=== PATIENT | female | born 1955 | race Caucasian/White ===

== ENCOUNTER 2019-02-13 09:00 | Outpatient (RCR) | payer MEDICARE, BC, SELFPAY | END 2019-02-13 09:05 | disposition home or self-care (01) | LOC: PT 09:00 | PROVIDERS: Visit Provider Orthopaedic Surgery Adult Reconstructive Orthopaedic Surgery | DX: Z96.641 Presence of right artificial hip joint (principal); M25.551 Pain in right hip | CPT/HCPCS: 97110; 97140; 97163 ==

== ENCOUNTER → 2020-05-21 09:31 | Outpatient (CLI) | payer MEDICARE, BC, SELFPAY ==
--- NOTE | 2020-05-21 09:36 | US_ITS ---
PROCEDURE: US EXTREMITY RT LIMITED CLINICAL INDICATION: INGUINAL MASS COMPARISON: No exams were available for comparison FINDINGS: Ultrasound is performed of the right inguinal region in the supine and upright position. No hernia is identified. No soft tissue mass apparent. There are few small lymph nodes. No abnormal fluid collection. IMPRESSION: Unremarkable ultrasound of the right inguinal region. There are few scattered small lymph nodes which are [address] of the inguinal area may provide further evaluation if clinically desired. Dictated by: Jimmy Garcia MD 05/22/2020 07:23 Jimmy Garcia MD in [place] 05/22/2020 07:23
--- NOTE | 2020-05-21 09:36 | MM_ITS ---
PROCEDURE: MM DIG SCREENING MAMM BI W/CAD Digital Breast Tomosynthesis Included CLINICAL INDICATION: SCREENING There is no personal or family history of breast cancer. COMPARISON: MG DMSB DIG MAMM-SCREEN JENNIFER from 08/20/2014 MG DMSB DIG MAMM-SCREEN JENNIFER from 01/29/2016 MG DMSB DIG MAMM-SCREEN JENNIFER W/CAD from 02/02/2017 TECHNIQUE: Standard CC and MLO images and 3D Tomosynthesis was obtained. R2 CAD reviewed. FINDINGS: Scattered fibroglandular densities are seen throughout both breast and the findings are bilateral and symmetrical. There is faint arterial calcification in each breast. There are few benign-appearing microcalcifications in each breast. There is no suspicious lesion and no suspicious microcalcifications. IMPRESSION: Fibrofatty parenchyma with no suspicious lesions seen BI-RAD Category: 2 Benign Finding(s) FOLLOW-UP: 1YR 1 Year Follow-up (A letter has been sent to the patient regarding results of the study.) Dictated by: Dr. Mukund Whitmore MD 05/25/2020 11:23 Dr. Mukund Whitmore MD in [place] 05/25/2020 11:23
--- NOTE | 2020-05-21 09:37 | XR_ITS ---
PROCEDURE: XR DEXA AXIAL SKELETON CLINICAL HISTORY: OSTEOPOROSIS Six COMPARISON: No exams were available for comparison FINDINGS: The left hip BMD is 0.821 with a T-score of -1.0. The lumbar spine BMD is 1.066 with a T-score of 0.2. Left wrist 33 percent is 0.663 grams/centimeters sq with a T-score of -0 point. IMPRESSION: This patient is considered normal according to the World Health Organization criteria. Fracture risk is low. Based on these results a follow-up exam is recommended in 2 year. Dictated by: Jimmy Garcia MD 05/22/2020 18:27 Jimmy Garcia MD in [place] 05/22/2020 18:27
== END ==
PROVIDERS: PCP Nurse Practitioner Family; Visit Provider Nurse Practitioner Family
DX: R19.09 Other intra-abdominal and pelvic swelling, mass and lump (principal); Z12.31 Encounter for screening mammogram for malignant neoplasm of breast; Z13.820 Encounter for screening for osteoporosis; Z78.0 Asymptomatic menopausal state
CPT/HCPCS: 76882; 77063; 77067; 77080

== ENCOUNTER → 2021-07-06 10:37 | Outpatient (CLI) | payer MEDICARE, BC, SELFPAY ==
--- NOTE | 2021-07-06 10:40 | MM_ITS ---
PROCEDURE INFORMATION: Exam: MG Bilateral Screening 3D Mammography Exam date and time: 07/06/2021 10:40 AM Age: 65 years old Clinical indication: Encounter for screening mammogram for malignant neoplasm of breast TECHNIQUE: Imaging protocol: Bilateral Screening tomosynthesis and 2D mammography including computer-aided detection (CAD) when performed. COMPARISON: No relevant prior studies available. FINDINGS: MAMMOGRAPHY: Breast composition: The breast tissue is composed of scattered areas of fibroglandular density. Mass: None. Architectural distortion: None. Calcifications: No suspicious calcifications. Asymmetric density: None. Skin thickening: None. Axillary adenopathy: None. IMPRESSION: No mammographic evidence of malignancy. Annual screening is recommended unless otherwise clinically indicated. ASSESSMENT: BI-RADS Category 1: Negative
== END ==
PROVIDERS: PCP Nurse Practitioner Family; Visit Provider Nurse Practitioner Family
DX: Z12.31 Encounter for screening mammogram for malignant neoplasm of breast (principal)
CPT/HCPCS: 77063; 77067

== ENCOUNTER → 2022-01-28 08:49 | Outpatient (CLI) | payer MEDICARE, BC, SELFPAY ==
[2022-01-28 09:37] LABS: Alanine Aminotransferase 22 U/L (12-78); Albumin Level 4.6 g/dl (3.5-5.0); Alkaline Phosphatase 113 U/L (38-126); Aspartate Amino Transferase 34 U/L (14-36); Bilirubin,Direct 0.2 mg/dl (0.0-0.4); Bilirubin,Indirect 1.3 mg/dL (0.0-0.9); Bilirubin,Total 1.5 mg/dl (0.2-1.3); Bilirubin,Unconjugated 1.3 mg/dL (0.0-1.1)
== END ==
PROVIDERS: PCP Family Medicine; Visit Provider Family Medicine
DX: R17 Unspecified jaundice (principal)
CPT/HCPCS: 36415; 80076

== ENCOUNTER → 2022-11-03 16:51 | Outpatient (CLI) | payer MEDICARE, SELFPAY ==
--- NOTE | 2022-11-03 16:54 | MM_ITS ---
PROCEDURE INFORMATION: Exam: MG Bilateral Screening 3D Mammography Exam date and time: 11/03/2022 4:44 PM Age: 67 years old Clinical indication: Screening examination TECHNIQUE: Imaging protocol: Bilateral Screening tomosynthesis and 2D mammography including computer-aided detection (CAD) when performed. COMPARISON: 1. MG MM DIG SCREENING MAMM BI W/CAD 07/06/2021 10:47 AM 2. MG MM DIG SCREENING MAMM BI W/CAD 05/21/2020 10:15 AM FINDINGS: MAMMOGRAPHY: Breast composition: There are scattered areas of fibroglandular density. Mass: None. Architectural distortion: None. Calcifications: No suspicious calcifications. Asymmetric density: None. Skin thickening: None. Axillary adenopathy: None. IMPRESSION: No mammographic evidence of malignancy. Annual screening is recommended unless otherwise clinically indicated. ASSESSMENT: BI-RADS Category 1: Negative
== END ==
PROVIDERS: PCP Family Medicine; Visit Provider Nurse Practitioner
DX: Z12.31 Encounter for screening mammogram for malignant neoplasm of breast (principal)
CPT/HCPCS: 77063; 77067

== ENCOUNTER 2023-08-04 09:41 | Outpatient (CLI) | payer MEDICARE, SELFPAY ==
--- NOTE | 2023-08-04 10:10 | US_ITS ---
FINAL REPORT CLINICAL HISTORY: ELEVATED BILIRUBIN ABOVE REFERENCE RANGE,JAUNDICE COMPARISON: None FINDINGS: Sonographic images of the right upper quadrant were obtained. The pancreas is partially obscured.The liver has an unremarkable appearance.The gallbladder appears normal without evidence of gallstones. A small amount of sludge is noted in the gallbladder. The common duct measures 6 mm. Multiple echogenic foci with shadowing are noted in the kidney consistent with nonobstructing calcified stones. There is mild calyceal prominence in the right kidney but no stacie hydronephrosis is present. IMPRESSION: Small amount of sludge present in the gallbladder. Multiple nonobstructing right renal stones with mild calyceal prominence but no stacie hydronephrosis. Reviewed, Interpreted and Dictated by Caesar Tuttle MD Transcribed by Amy Rojas Authenticated and [facility]
== END 2023-08-04 23:59 ==
LOC: RAD 09:42
PROVIDERS: PCP Nurse Practitioner; Visit Provider Nurse Practitioner
DX: R17 Unspecified jaundice (principal)
CPT/HCPCS: 76705

== ENCOUNTER 2023-12-26 07:57 | Outpatient (CLI) | payer MEDICARE, SELFPAY ==
[2023-12-26 08:11] LABS: Basophils # 0.1 K/mm3 (0-0.2); Basophils % 1.1 % (0.1-2.0); Eosinophils # 0.4 K/mm3 (0.0-0.4); Eosinophils % 7.2 % (0.1-12.0); Hematocrit 40.7 % (37.0-47.0); Hemoglobin 13.1 g/dL (12.2-16.2); Lymphocytes # 2.1 K/mm3 (0.7-4.5); Lymphocytes % 41.7 % (10-50); Mean Corpuscular HGB Conc 32.3 g/dL (31.8-35.4); Mean Corpuscular Hemoglobin 30.8 pg (27.0-31.2); Mean Corpuscular Volume 95.4 fl (81-99); Mean Platelet Volume 7.6 fl (7.4-10.4); Monocytes # 0.4 K/mm3 (0.1-1.0); Monocytes % 8.6 % (1.7-9.3); Neutrophils # 2.1 K/mm3 (1.8-7.8); Neutrophils % 41.5 % (37.0-80.0); Platelet Count 197 K/mm3 (142-424); Red Blood Count 4.26 M/mm3 (4.20-5.40); Red Cell Distribution Width 13.7 % (11.5-17.5); White Blood Count 4.9 K/mm3 (4.8-10.8)
[2023-12-26 11:29] LABS: Chloride 108 mmol/L (98-107); Sodium 141 mmol/L (136-145)
[2023-12-26 11:32] LABS: Alanine Aminotransferase 22 U/L (12-78); Alkaline Phosphatase 87 U/L (38-126); Aspartate Amino Transferase 31 U/L (14-36); Bilirubin,Total 0.9 mg/dl (0.2-1.3); Blood Urea Nitrogen 21 mg/dl (7-17); Calcium 9.3 mg/dl (8.4-10.2); Carbon Dioxide 29 mmol/L (22.0-30.0); Estimated Glomerular Filt Rate 100 ml/min (>60); GFR (African American) 121 ML/MIN (>60); Glucose 92 mg/dl (74-100)
[2023-12-26 11:53] LABS: Albumin Level 4.6 g/dl (3.5-5.0); Albumin/Globulin Ratio 1.9 (1.1-1.8); Globulin 2.4 g/dL (1.3-3.2)
== END 2023-12-26 23:59 | disposition home or self-care (01) ==
LOC: LAB 07:59
PROVIDERS: PCP Nurse Practitioner; Visit Provider Internal Medicine Rheumatology
DX: M54.9 Dorsalgia, unspecified (principal); M19.90 Unspecified osteoarthritis, unspecified site; N28.9 Disorder of kidney and ureter, unspecified; R89.9 Unspecified abnormal finding in specimens from other organs, systems and tissues
CPT/HCPCS: 36415; 80053; 85025

== ENCOUNTER 2024-01-11 13:20 | Outpatient (CLI) | payer MEDICARE, SELFPAY ==
--- NOTE | 2024-01-11 13:23 | MM_ITS ---
PROCEDURE INFORMATION: Exam: MG Bilateral Screening 3D Mammography Exam date and time: 01/11/2024 1:08 PM Age: 68 years old Clinical indication: Screening examination TECHNIQUE: Imaging protocol: Bilateral Screening tomosynthesis and 2D mammography including computer-aided detection (CAD) when performed. COMPARISON: 1. MG MM DIG SCREENING MAMM BI W/CAD 11/03/2022 4:44 PM 2. MG MM DIG SCREENING MAMM BI W/CAD 07/06/2021 10:47 AM FINDINGS: MAMMOGRAPHY: Breast composition: There are scattered areas of fibroglandular density. Mass: None. Architectural distortion: None. Calcifications: No suspicious calcifications. Asymmetric density: None. Skin thickening: None. Axillary adenopathy: None. IMPRESSION: No mammographic evidence of malignancy. Annual screening is recommended unless otherwise clinically indicated. ASSESSMENT: BI-RADS Category 1: Negative
== END 2024-01-11 23:59 | disposition home or self-care (01) ==
LOC: RAD 13:21
PROVIDERS: PCP Nurse Practitioner; Visit Provider Nurse Practitioner
DX: Z12.31 Encounter for screening mammogram for malignant neoplasm of breast (principal)
CPT/HCPCS: 77063; 77067

== ENCOUNTER 2024-12-22 01:30 | Emergency (ER) | payer MEDICARE, SELFPAY ==
--- OUTSIDE RECORDS SUMMARY | 2024-10-31 09:45 | XMS_ITS | Encounter Summary ---
Author Organization [facility] Address [address] [place] [address] Care Team Providers Care Ceramic Research Engineer Name Role Phone Brenda Mejia Lashaun Primary Care Provider [phone] Reason for Referral * Diagnostic Imaging (Routine) - Authorized Specialty Diagnoses / Procedures Referred By Contac t Referred To Contact Radiology Diagnoses Postmenopause Procedures DEXA Bone Density Axial Anshu Maloney APRN [address] [facility] [address] [place] [address] Phone: tel: fax: [facility] RHEUMATOLOGY DEXA [address] [address] Phone: tel: fax: Referral ID Status Reason Start Date Expiration Date V isits Requested Visits Authorized [id number] Authorized 10/31/2024 01/30/2026 1 1 Reason for Visit * Reason Comments Primary osteoarthritis Encounter Details Date Type Department Care Team (Latest Contact Info) Description 10/31/2024 9:45 AM EDT Office Visit [facility] RHEUMATOLOGY [address] [place] [address] Anshu Maloney APRN [address] [place], [place] [address] Primary osteoarthritis involving multiple joints (Primary Dx); Renal insufficiency; Pain management; Acute idiopathic gout involving toe of right foot; Postmenopause; Pain in both upper arms; Arthralgia, unspecified joint Social History Tobacco Use Types Packs/Day Years Used Date Smoking Tobacco: Never Passive Smoke Exposure: Past Smokeless Tobacco: Never Tobacco Cessation:Counseling Given: Not Answered Alcohol Use Standard Drinks/Week Comments Never 0 (1 standard drink = 0.6 oz pur e alcohol) PHQ-2 Answer Date Recorded Retired PHQ-9: Brief Depression Severity Measure Score 0 01/22/2022 Comments Unknown Sex and Gender Information Value Date Recorded Sex Assigned at Not on file Legal Sex Female 10:36 AM EDT Gender Identity Not on file Sexual Orientation Not on file documented as of this encounter Last Filed Vital Signs Vital Sign Reading Time Taken Comments Blood Pressure 130/78 10/31/2024 9:33 AM EDT Pulse 64 10/31/2024 9:33 AM EDT Temperature 36.3 C (97.4 F) 10/31/2024 9:33 AM EDT Respiratory Rate - - Oxygen Saturation - - Inhaled Oxygen Concentration - - Weight 76.2 kg (168 lb) 10/31/2024 9:33 AM EDT Height 162.6 cm (5' 4 ) 10/31/2024 9:33 AM EDT Body Mass Index 28.84 10/31/2024 9:33 AM EDT documented in this encounter Progress Notes * Anshu Maloney, МАРИЯ - 10/31/2024 9:45 AM EDTAssociated Problem(s): Primary osteoarthritis History of left TKR 06/22 and right TKR 09/19--Dr Rondon.; labs neg; X-ray c/w degenerative joint disease of the hands Shoulder film 05/31 - OA of AC joint , narrowing of the GH joint on R with spur, joint on L was not narrowed but spur present. She has pain in the hands currently - OA , First cmc joint on L. R 5th pip is bothersome. Hand films 12/29 - significant OA in DIPs, PIPs, and 1st CMCs. Worse since 2012. Unchanged. Plan: Continue sulindac and Gabapentin Continue Pepcid while on sulindac Can try topical creams such as CBD and Biofreeze. Comfort cool splints from [employer]. Compression gloves. Her shoulders are her biggest problem. Declines PT. She is thinking about seeing chiropractor. Currently taking gabapentin bid. She finds this very helpful. Tylenol Arthritis 2 twice daily - [employer] generic or BRAND. Orders: CBC & Differential; Future Comprehensive Metabolic Panel; Future ToxAssure Flex 22, Urine - Urine, Random Void; Future sulindac (CLINORIL) 200 MG tablet; Take 1 tablet by mouth 2 (Two) Times a Day. Daily with food gabapentin (NEURONTIN) 300 MG capsule; Take 1 capsule by mouth 3 (Three) Times a Day. * Anshu Maloney APRN - 10/31/2024 9:45 AM EDTAssociated Problem(s): Renal insufficiency Resolved on most recent labs Plan: Cbc,Cmp Q 6 months - 07/2024 Doing well currently. * Anshu Maloney APRN - 10/31/2024 9:45 AM EDTAssociated Problem(s): Pain management Gabapentin. Controlled substance agreement reviewed and signed 10/31/24 Plan: Continue Gabapentin. UDS 10/31/24 PDMP reviewed Discussed risks of gabapentin including dizziness sedation, weight gain, leg swelling, withdrawal. Discussed gabapentin is controlled medication and that she should keep it in a locked cabinet. Orders: ToxAssure Flex 22, Urine - Urine, Random Void; Future * Anshu Maloney APRN - 10/31/2024 9:45 AM EDT [facility] Rheumatology Office Follow Up Visit Office Follow Up Date: 10/31/2024 Patient Name: Kayleen Webb Date of : 1955 Referring Physician: No ref. provider found Chief Complaint Patient presents with Primary osteoarthritis History of Present Illness: Kayleen Webb is a 69 y.o. female who is here today for follow up onosteoarthritis. Today she reports feeling the same. She rates her pain 2/10, global 4/10 and has 20to 30 minutes of morning stiffness. She request refills of sulindac and gabapentin today. She is a former Dr. Victoria Barahona patient. Subjective Allergies Allergen Reactions Beef (Bovine) Protein Other (See Comments) Alphagal Lisinopril Other (See Comments) Lips swelling Other Provider Review Needed SERUM BASE NO.214: HORSE SERUM Pork-Derived Products Other (See Comments) Alphagal Current Outpatient Medications: albuterol sulfate HFA 108 (90 Base) MCG/ACT inhaler, , Disp: , Rfl: amLODIPine (NORVASC) 10 MG tablet, Take 1 tablet by mouth Daily., Disp: 90 tablet, Rfl: 1 atorvastatin (LIPITOR) 20 MG tablet, Take 1 tablet by mouth Daily., Disp: 90 tablet, Rfl: 1 benzonatate (TESSALON) 200 MG capsule, Take 1 capsule by mouth 3 times a day., Disp: , Rfl: calcium carbonate (OS-MARCIA) 1250 (500 Ca) MG tablet, Take by mouth., Disp: , Rfl: Cholecalciferol 25 MCG (1000 UT) tablet, Take 1 tablet by mouth Daily., Disp: , Rfl: colchicine 0.6 MG tablet, Take 1 tablet by mouth Daily. Prn gout attack, Disp: 30 tablet, Rfl: 2 EPINEPHrine (EPIPEN) 0.3 MG/0.3ML solution auto-injector injection, INJECT 1 PEN INTO THE MUSCLE OFTHE OUTER THIGH DIRECTED NEEDED AND CALL 911, Disp: , Rfl: famotidine (PEPCID) 20 MG tablet, , Disp: , Rfl: gabapentin (NEURONTIN) 300 MG capsule, Take 1 capsule by mouth 3 (Three) Times a Day., Disp: 270 capsule, Rfl: 1 levothyroxine (SYNTHROID, LEVOTHROID) 125 MCG tablet, Take 1 tablet by mouth Daily., Disp: 90 tablet, Rfl: 1 losartan-hydrochlorothiazide (HYZAAR) 50-12.5 MG per tablet, Take 1 tablet by mouth Daily., Disp: 90 tablet, Rfl: 1 magnesium oxide (MAG-OX) 400 MG tablet, Take 1 tablet by mouth Daily., Disp: , Rfl: sulindac (CLINORIL) 200 MG tablet, Take 1 tablet by mouth 2 (Two) Times a Day. 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 She was bit by lone star tick. Arthritis 08/2012 Had both knees and right hip replaced Asthma 10/1963 Took asthma shots when young. Have emergency inhaler. Not much trouble now Benign positional vertigo Bilateral hand numbness Fatigue History of blood clots IN UMBILICAL CORD Hypercalcemia Hyperlipidemia Hypertension 1999 Under control with meds Hypomagnesemia Hypothyroidism 2005 Under control with meds Insomnia Joint pain Low back pain Multiple food allergies BEEF,PORK,TILLMAN Shingles Tattoo Vitamin D deficiency Past Surgical History: Procedure Laterality Date COLONOSCOPY 2016 Nothing found COSMETIC SURGERY 1991 Abdominoplasty JOINT REPLACEMENT 06/2013. 09/2013. 12/2017 Both knees and right hip replaced TONSILLECTOMY 1964 Family History Problem Relation Age of Onset Arthritis Mother Diabetes Mother Heart disease Mother Hyperlipidemia Mother Cancer Father from pancreatic cancer 02/09/2015 Cancer Brother from bladder cancer 12/31/2015 Diabetes Brother Social History Socioeconomic History Marital status: Number of children: 3 Tobacco Use Smoking status: Never Passive exposure: Past Smokeless tobacco: Never Vaping Use Vaping status: Never Used Substance and Sexual Activity Alcohol use: Never Drug use: Never Sexual activity: Not Currently Partners: Male Review of Systems Constitutional: Positive for fatigue. Respiratory: Positive for cough, chest tightness, shortness of breath and wheezing. Musculoskeletal: Positive for arthralgias, back pain, gait problem, joint swelling, myalgias, neck pain and neck stiffness. Allergic/Immunologic: Positive for food allergies. Neurological: Positive for light-headedness. All other systems reviewed and are negative. I have reviewed and updated the patient's chief complaint, history of present illness, review of systems, past medical history, surgical history, family history, social history, medications and allergy list as appropriate. Objective Vital Signs: Vitals: 10/31/24 0933 BP: 130/78 BP Location: Left arm Patient Position: Sitting Cuff Size: Adult Pulse: 64 Temp: 97.4 ??F (36.3 ??C) Weight: 76.2 kg (168 lb) Height: 162.6 cm (64 ) PainSc: 2 PainLoc: Generalized Body mass index is 28.84 kg/m??. Physical Exam Vitals reviewed. Constitutional: Appearance: Normal appearance. HENT: Head: Normocephalic and atraumatic. Mouth/Throat: Mouth: Mucous membranes are moist. Eyes: Conjunctiva/sclera: Conjunctivae normal. Cardiovascular: Rate and Rhythm: Normal rate and regular rhythm. Pulses: Normal pulses. Heart sounds: Normal heart sounds. Pulmonary: Effort: Pulmonary effort is normal. Breath sounds: Normal breath sounds. Musculoskeletal: General: Normal range of motion. Cervical back: Normal range of motion and neck supple. Comments: Large heberden and aury bilaterally No synovitis/soft tissue swelling Tender shoulders with ROM Crepitus right knee Skin: General: Skin is warm and dry. Neurological: General: No focal deficit present. Mental Status: She is alert and oriented to person, place, and time. Mental status is at baseline. Psychiatric: Mood and Affect: Mood normal. Behavior: Behavior normal. Thought Content: Thought content normal. Judgment: Judgment normal. Results Review: Imaging Results (Last 24 Hours) No results found for the last 24 hours. Procedures Assessment / Plan Assessment & Plan Primary osteoarthritis involving multiple joints History of left TKR 06/22 and right TKR 09/19--Dr Rondon.; labs neg; X-ray c/w degenerative joint disease of the hands Shoulder film 05/31 - OA of AC joint , narrowing of the GH joint on R with spur, joint on L was not narrowed but spur present. She has pain in the hands currently - OA , First cmc joint on L. R 5th pip is bothersome. Hand films 12/29 - significant OA in DIPs, PIPs, and 1st CMCs. Worse since 2012. Unchanged. Plan: Continue sulindac and Gabapentin Continue Pepcid while on sulindac Can try topical creams such as CBD and Biofreeze. Comfort cool splints from [employer]. Compression gloves. Her shoulders are her biggest problem. Declines PT. She is thinking about seeing chiropractor. Currently taking gabapentin bid. She finds this very helpful. Tylenol Arthritis 2 twice daily - [employer] generic or BRAND. Orders: CBC & Differential; Future Comprehensive Metabolic Panel; Future ToxAssure Flex 22, Urine - Urine, Random Void; Future sulindac (CLINORIL) 200 MG tablet; Take 1 tablet by mouth 2 (Two) Times a Day. Daily with food gabapentin (NEURONTIN) 300 MG capsule; Take 1 capsule by mouth 3 (Three) Times a Day. Renal insufficiency Resolved on most recent labs Plan: Cbc,Cmp Q 6 months - 07/2024 Doing well currently. Pain management Gabapentin. Controlled substance agreement reviewed and signed 10/31/24 Plan: Continue Gabapentin. UDS 10/31/24 PDMP reviewed Discussed risks of gabapentin including dizziness sedation, weight gain, leg swelling, withdrawal. Discussed gabapentin is controlled medication and that she should keep it in a locked cabinet. Orders: ToxAssure Flex 22, Urine - Urine, Random Void; Future Acute idiopathic gout involving toe of right foot She has had one gout attack. No further gout flares Postmenopause Order dexa Orders: DEXA Bone Density Axial; Future Pain in both upper arms Orders: CBC & Differential; Future Arthralgia, unspecified joint Orders: ToxAssure Flex 22, Urine - Urine, Random Void; Future I attest that the documentation was copied from a previous note but is still current and accurate. Follow Up: Return in about 6 months (around 05/02/2025) for NORMA Maloney APRN. Anshu Maloney APRN [facility] Rheumatology documented in this encounter Plan of Treatment Upcoming Encounters Date Type Department Care Team (Late st Contact Info) Description 04/29/2025 8:30 AM EST Appointment [facility] RHEUMATOLOGY DEXA [address] [address] 04/29/2025 9:00 AM EST Office Visit [facility] RHEUMATOLOGY [address] [place] [address] Anshu Malonye APRN [address] [address] Scheduled Orders Name Type Priority Associated Diagnoses Orde r Schedule CBC & Differential Lab Panel Routine Primary osteoarthritis involving multiple joints Pain in both upper arms Expected: 11/30/2024 (Approximate), Expires: 01/31/2026 Comprehensive Metabolic Panel Lab Routine Primary osteoarthritis involving multiple joints Expected: 11/30/2024 (Approximate), Expires: 01/31/2026 ToxAssure Flex 22, Urine - Urine, Random Void Lab Routine Primary osteoarthritis involving multiple joints Pain management Arthralgia, unspecified joint Expected: 11/30/2024, Expires: 01/31/2026 DEXA Bone Density Axial Imaging Routine Postmenopause Expected: 11/03/2024, Expires: 01/31/2026 documented as of this encounter Visit Diagnoses Diagnosis Primary osteoarthritis involving multiple joints- Primary Renal insufficiency Unspecified disorder of kidney and ureter Pain management Acute idiopathic gout involving toe of right foot Postmenopause Asymptomatic postmenopausal status (age-related) (natural) Pain in both upper arms Arthralgia, unspecified joint documented in this encounter Care Teams Ceramic Research Engineer Relationship Specialty Start Date End Date Brenda [place] [address] PCP - General Nurse Practitioner 01/02/24 documented as of this encounter
[2024-12-22] VITALS (15 sets, daily range): BP systolic 116–194; BP diastolic 65–91; PULSE 62–85; RESP 12–18; TEMP 36.4–37.1; O2SAT 93–98; BMI 27.4
--- NOTE | 2024-12-22 01:33 | ECG_ITS ---
APPROVED REPORT Exam: Resting ECG HR:76 bpm ECG Measurements Heart Rate 76 AXES MN 173 P 65 QRSd 110 QRS 47 QT 390 T 56 QTc 421 Conclusion SINUS RHYTHM POSSIBLE RIGHT VENTRICULAR CONDUCTION DELAY [RSR (QR) IN V1/V2] BORDERLINE ECG UNCONFIRMED REPORT Electronically signed by : PADMAJA NAIR, 12/22/2024 06:53:38
--- NOTE | 2024-12-22 01:34 | XR_ITS ---
PROCEDURE INFORMATION: Exam: XR Chest Exam date and time: 12/22/2024 1:50 AM Age: 69 years old Clinical indication: Other: Chest pain, pressure TECHNIQUE: Imaging protocol: Radiologic exam of the chest. Views: 1 view. COMPARISON: No relevant prior studies available. FINDINGS: Lungs: Unremarkable. No consolidation. Pleural spaces: Unremarkable. No pleural effusion. No pneumothorax. Heart/Mediastinum: Unremarkable. Top-normal to mildly enlarged heart. Vasculature: Unremarkable. Bones/joints: Unremarkable. IMPRESSION: No acute findings.
--- OUTSIDE RECORDS SUMMARY | 2024-12-22 01:39 | XMS_ITS | Encounter Summary ---
[facility] Organization [facility] Address [address] [place] [address] Care Team Providers Care Shoe Lining Fitter Name Role Phone Brenda Mejia Primary Care Provider [phone] Encounter Details Date Type Department Care Team (Late Contact Info) Description 07/24/2024 Results Follow-Up [facility] RHEUMATOLOGY [address] [address] Anshu Maloney APRN [address] [place] [address] Social History Tobacco Use Types Packs/Day Years Used Date Smoking Tobacco: Never Smokeless Tobacco: Never Alcohol Use Standard Drinks/Week Comments Never 0 [...] on file documented as of this encounter Plan of Treatment Upcoming Encounters Date Type Department Care Team (Late st Contact Info) Description 04/29/2025 8:30 AM EST Appointment [facility] RHEUMATOLOGY DEXA [address] [address] 04/29/2025 9:00 AM EST Office Visit [facility] RHEUMATOLOGY [address] [address] Anshu Maloney APRN [address] [place] [address] documented as of this encounter Visit Diagnoses Not on filedocumented in this encounter Care Teams Shoe Lining Fitter Relationship Specialty Start Date End Date RobertoBrenda Lashaun [address] [place] [address] PCP - General Nurse Practitioner 01/02/24 documented as of this encounter
--- OUTSIDE RECORDS SUMMARY | 2024-12-22 01:39 | XMS_ITS | Encounter Summary ---
Author Organization [facility] Address [address] [place] [address] Care Team Providers Care Tip Banding Machine Operator Name Role Phone Brenda Mejia Primary Care Provider [phone] Encounter Details Date Type Department Care Team (Latest Contact Info) Description 10/31/2024 Travel Social History Tobacco Use Types Packs/Day Years Used Date Smoking Tobacco: Never Passive Smoke Exposure: Past Smokeless Tobacco: Never Alcohol Use Standard Drinks/Week [...] Info) Description 04/29/2025 8:30 AM EST Appointment [facility] RHEUMATOLOGY DEXA [address] [address] 04/29/2025 9:00 AM EST Office Visit [facility] RHEUMATOLOGY [address] [place] [address] Anshu Maloney APRN [address] [address] documented as of this encounter Visit Diagnoses Not on filedocumented in this encounter Care Teams Tip Banding Machine Operator Relationship Specialty Start Date End Date Brenda Mejia [address] [place] [address] PCP - General Nurse Practitioner 01/02/24 documented as of this encounter
--- OUTSIDE RECORDS SUMMARY | 2024-12-22 01:39 | XMS_ITS | Clinical Summary ---
Author Organization [facility] Address [address] [place] [address] Care Team Providers Care Mva Still Operator Name Role Phone Brenda Mejia Primary Care Provider [phone] Allergies Active Allergy Reactions Criticality Noted Date Comments Beef (Bovine) Protein Other (See Comments) 09/06 Alphagal Lisinopril Other (See Comments) 01/22/2022 Lips swelling Other Provider Review Needed 12/27/2023 SERUM BASE NO.214: HORSE SERUM Pork-Derived Products Other (See Comments) 09/06 Alphagal Medications albuterol sulfate HFA 108 (90 Base) MCG/ACT inhaler 01/15/20 22 Active calcium carbonate (OS-MARCIA) 1250 (500 Ca) MG tablet Take by mouth. Active famotidine (PEPCID) 20 MG tablet 12/18/19 22 Active magnesium oxide (MAG-OX) 400 MG tablet Take 1 tablet by mouth Daily. Active levothyroxine (SYNTHROID, LEVOTHROID) 125 MCG tabletIndications: Hypothyroidism, unspecified type Take 1 tablet by mouth Daily. 90 tablet 1 09/25/19 23 Active atorvastatin (LIPITOR) 20 MG tabletIndications: Hypercholesterolem ia Take 1 tablet by mouth Daily. 90 tablet 1 09/25/19 23 Active losartan-hydrochlo rothiazide (HYZAAR) 50-12.5 MG per tabletIndications: Essential hypertension Take 1 tablet by mouth Daily. 90 tablet 1 09/25/19 23 Active amLODIPine (NORVASC) 10 MG tabletIndications: Essential hypertension Take 1 tablet by mouth Daily. 90 tablet 1 09/25/19 23 Active Cholecalciferol 25 MCG (1000 UT) tablet Take 1 tablet by mouth Daily. Active EPINEPHrine (EPIPEN) 0.3 MG/0.3ML solution auto-injector injection INJECT 1 PEN INTO THE MUSCLE OF THE OUTER THIGH DIRECTED NEEDED AND CALL 911 Active colchicine 0.6 MG tabletIndications: Acute idiopathic gout involving toe of right foot Take 1 tablet by mouth Daily. Prn gout attack 30 tablet 2 01/02/20 24 Active benzonatate (TESSALON) 200 MG capsule Take 1 capsule by mouth 3 times a day. 10/18/19 25 Active gabapentin (NEURONTIN) 300 MG capsuleIndications :Primary osteoarthritis involving multiple joints Take 1 capsule by mouth 3 (Three) Times a Day. 270 capsule 1 11/01/19 25 Active sulindac (CLINORIL) 200 MG tabletIndications: Primary osteoarthritis involving multiple joints TAKE ONE TABLET BY MOUTH TWICE DAILY with a MEAL 60 tablet 3 12/11/19 25 Active sulindac (CLINORIL) 200 MG tabletIndications: Primary osteoarthritis involving multiple joints Take 1 tablet by mouth 2 (Two) Times a Day. Daily with food 60 tablet 11/01/19 25 025 Discontinued Active Problems Problem Noted Date Diagnosed Date Primary osteoarthritis 12/30/2023 Assessment & Plan (10/31/2024 10:32 AM EDT): History of left TKR 06/22 and right [...] CBD and Biofreeze. Comfort cool splints from [employer]. Compression gloves. Her shoulders are her biggest [...] by mouth 3 (Three) Times a Day. Assessment & Plan (12/30/2023 5:55 PM EDT): History of left TKR 06/22 and right [...] and Gabapentin Continue Pepcid while on sulindac We discussed we could try injections in her shoulders if she would like to- she can call if she wants to try this. She is not ready at present. Can also inject first cmc joints. Can try topical creams such as CBD and Biofreeze. Comfort cool splints from [employer]. Compression gloves. Currently taking gabapentin bid. Could increased to tid if needed. Tylenol Arthritis 2 twice daily - [employer] generic or BRAND. She has not been using this. Renal insufficiency 12/30/2023 Assessment & Plan (10/31/2024 10:32 AM EDT): Resolved on most recent labs Plan: Cbc,Cmp Q 6 months - 07/2024 Doing well currently. Assessment & Plan (12/30/2023 5:56 PM EDT): 09/23 Cr 1.04/59 03/26 Cr 0.90/70 09/24 Cr 1.03/59. 03/27 Cr 0.88/71 03/2020 Cr 0.8/77 NORMAL. 09/2020- Cr 0.76/84 03/23/21: 0.79/92 09/2021: 0.77/87 Cr 0.82/80 in 05/31 Plan: Cbc,Cmp Q 6 months - 12/29 Doing well currently. Abnormal laboratory test 12/30/2023 Assessment & Plan (12/30/2023 5:57 PM EDT): Bili elevated mildly 3x since September 2020. May 2022 1.5(1.2). Other liver functions normal. Plan: Rec she discuss GI referral with PCP. Pain management 12/30/2023 Assessment & Plan (10/31/2024 10:32 AM EDT): Gabapentin. Controlled substance agreement reviewed and signed 10/31/24 Plan: Continue Gabapentin. UDS 10/31/24 PDMP reviewed Discussed risks of gabapentin including dizziness sedation, weight gain, leg swelling, withdrawal. Discussed gabapentin is controlled medication and that she should keep it in a locked cabinet. Orders: ToxAssure Flex 22, Urine - Urine, Random Void; Future Assessment & Plan (12/30/2023 5:57 PM EDT): Gabapentin. Discussed and signed- On chart. Plan: Continue Gabapentin. UDS 05/14/22 Back pain 12/27/2023 Assessment & Plan (12/30/2023 5:56 PM EDT): DDD/DJD facets. Sx come and go. Worse with squatting and bending. No radicular sx. Plan: Lee flexion exercises given and discussed - work up to 15-20 of each per day. She is doing these with some improvement. Tylenol Arthritis 2 twice daily prn. Continue gabapentin bid. Can increase to tid if needed. 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 Encounters Date Type Department Care Team Description 12/10/2024 Refill [facility] [address] [address] Anshu Maloney APRN Primary osteoarthritis involving multiple joints 10/31/2024 9:45 AM EDT Office Visit [facility] [address] [address] Anshu Maloney APRN Primary osteoarthritis involving multiple joints (Primary Dx); Renal insufficiency; Pain management; Acute idiopathic gout involving toe of right foot; Postmenopause; Pain in both upper arms; Arthralgia, unspecified joint 10/31/2024 Travel from Last 3 Months Immunizations Immunization Administration Dates Next Due COVID-19 (MODERNA) 12YRS+ (SPIKEVAX) 08/27/2020, 07/23/2020 Family History Medical History Relation Name Comments Cancer Brother Luis Carlos Handley Jr from bladder cancer 12/31/2015 Diabetes Brother Luis Carlos Handley Jr Cancer Father Luis Carlos Handley from pa ncreatic cancer 02/09/2015 Arthritis Mother Sandy Handley Diabetes Mother Sandy Handley Heart disease Mother Sandy Handley Hyperlipidemia Mother Sandy Handley Relation Name Status Comments Brother Luis Carlos Handley Jr Father Luis Carlos Handley Mother Sandy Handley Social History Tobacco Use Types Packs/Day Years [...] on file Sexual Orientation Not on file Last Filed Vital Signs Vital Sign Reading Time Taken Comments Blood Pressure 130/78 10/31/2024 9:33 AM EDT Pulse 64 10/31/2024 9:33 AM EDT Temperature 36.3 C (97.4 F) 10/31/2024 9:33 AM EDT Respiratory Rate 20 01/22/2022 9:00 AM EDT Oxygen Saturation 98% 01/22/2022 9:00 AM EDT Inhaled Oxygen Concentration - - Weight 76.2 kg (168 lb) 10/31/2024 9:33 AM EDT Height 162.6 cm (5' 4 ) 10/31/2024 9:33 AM EDT Body Mass Index 28.84 10/31/2024 9:33 AM EDT Plan of Treatment Upcoming Encounters Date Type Department Care Team (Late st Contact Info) Description 04/29/2025 8:30 AM EST Appointment [facility] DEXA [address] [address] 04/29/2025 9:00 AM EST Office Visit [facility] [address] [place] [address] Anshu Maloney APRN [address] [address] Health Maintenance Due Date Last Done Comments DXA SCAN 1955 COLOGUARD 2002 COLON CANCER SCREENING 5 YEA R SIGMOIDOSCOPY 2002 COLONOSCOPY 2002 COLORECTAL CANCER SCREENING 2002 CT COLONOGRAPHY 2002 FECAL OCCULT BLOOD TEST 2002 FIT Testing (1 year) 2002 ANNUAL WELLNESS VISIT 01/22/2022 HEPATITIS C SCREENING 01/22/2022 LIPID PANEL 01/22/2023 01/22/2022 COVID-19 Vaccine (2023-06 5 season) 2024 06/09/2021, 08/27/2020, 08/07/2020, Additional history exists MAMMOGRAM 11/03/2024 11/03/2022 ZOSTER VACCINE (2 of 2) 12/21/2024 10/26/2024 INFLUENZA VACCINE 02/06/2025 05/24/2018 Pneumococcal Vaccine 50+ (2 of 2 - PPSV23) 10/26/2025 10/26/2024 TDAP/TD VACCINES (2 - Td or Tdap) 05/24/2028 019 Procedures Procedure Name Priority Date/Time Associated Diagnosis Comments SCANNED - MAMMO 11/03/2022 LIPID PANEL Routine 01/22/2022 9:31 AM EDT Hypercholesterolemia from Last 3 Months or Most Recently Relevant to Health Maintenance Results * SCANNED - MAMMO (11/03/2022) Anatomical Region Laterality Modality Other us Brenda Mejia CHART REVIEW TABS Final R esult * Lipid Panel (01/22/2022 9:31 AM EDT) Total Cholesterol 137 0 - 200 mg/dL [facility] Comment: Cholesterol Reference Ranges (U.S. Department of Health and Human Services ATP III Classifications) Desirable <200 mg/dL Borderline High 200-239 mg/dL High Risk >240 mg/dL Triglyceride Reference Ranges (U.S. Department of Health and Human Services ATP III Classifications) Normal <150 mg/dL Borderline High 150-199 mg/dL High 200-499 mg/dL Very High >500 mg/dL HDL Reference Ranges (U.S. Department of Health and Human Services ATP III Classifications) Low <40 mg/dl (major risk factor for CHD) High >60 mg/dl ('negative' risk factor for CHD) LDL Reference Ranges (U.S. Department of Health and Human Services ATP III Classifications) Optimal <100 mg/dL Near Optimal 100-129 mg/dL Borderline High 130-159 mg/dL High 160-189 mg/dL Very High >189 mg/dL Triglycerides 111 0 - 150 mg/dL [facility] HDL Cholesterol 54 40 - 60 mg/dL [facility] VLDL Cholesterol Marcia 20 5 - 40 mg/dL [facility] LDL Chol Calc (NIH) 63 0 - 100 mg/dL [facility] Blood 01/22/2022 9:31 AM EDT 01/22/2022 Narrative [facility]) - 01/23/2022 3:07 AM EDT Performed at: [address] [place] [id number] Customer Manager: Harris Jones MD, Phone: [phone] Patient Fasting: Y Jaret Miramontes MD LAB BLOOD ORDERABLES Fin al Result [facility] [address] [place] [address], [place] [phone] [facility] [address] [place] [address], from Last 3 Months or Most Recently Relevant to Health Maintenance Insurance [id number] ANTHEM MEDICARE ADVANTAGE HMO Member Subscriber Plan / Payer (Ef fective 2024-Present) Name:Kayleen Webb Relation to Subscriber:Self Name:Kayleen Webb Payer ID:[id number] (NAIC) Group ID:[id number] Type:Not on file Address: [address] [place] [id number] Care Teams Mva Still Operator Relationship Specialty Start Date End [place] [address] PCP - General Nurse Practitioner 01/02/24
--- OUTSIDE RECORDS SUMMARY | 2024-12-22 01:39 | XMS_ITS | Encounter Summary ---
Author Organization [facility] Address [address] [place] [id number] Care Team Providers Care Side Gluer Name Role Phone Brenda Mejia Primary Care Provider [phone] Reason for Visit * Reason Comments Med Refill Encounter Details Date Type Department Care Team (Late st Contact Info) Description 05/04/2023 Refill [facility] [address] [place] [address] Jaret Miramontes MD [address] [place] [address] Essential hypertension; Hypothyroidism, unspecified type; Hypercholesterolemia Social History Tobacco Use Types Packs/Day Years [...] on file documented as of this encounter Miscellaneous Notes * Telephone Encounter - Pinky Peña RegSched Rep - 05/05/2023 9:20 AM EST Patient with in infusion at the moment- called back to say that she would tripp back to [facility] * Telephone Encounter - Sneha Anaya RegSched Rep - 05/05/2023 9:14 AM EST LEFT VM documented in this encounter Plan of Treatment Upcoming Encounters Date Type Department Care Team (Late st Contact Info) Description 04/29/2025 8:30 AM EST Appointment [facility] DEXA [address] [address] 04/29/2025 9:00 AM EST Office Visit [facility] [address] [address] Anshu Maloney APRN [address] [phone] documented as of this encounter Visit Diagnoses Diagnosis Essential hypertension Unspecified essential hypertension Hypothyroidism, unspecified type Hypercholesterolemia Pure hypercholesterolemia documented in this encounter Care Teams Side Gluer Relationship Specialty Start Date End Date Brenda Mejia [address] [place] [address] PCP - General Nurse Practitioner 01/02/24 documented as of this encounter
--- OUTSIDE RECORDS SUMMARY | 2024-12-22 01:39 | XMS_ITS | Clinical Summary ---
Author Organization [facility] Address [address] [place] [address] Care Team Providers Care Sr. Payroll Processor Name Role Phone Doris De La Rosa APRN Primary Care Provider Social History Tobacco Use Types Packs/Day Years Used Date Smoking Tobacco: Never Assessed Comments Unknown Sex and Gender Information Value Date Recorded Sex Assigned at Not on file Legal Sex Female 7:46 PM EDT Gender Identity Not on file Sexual Orientation Not on file Last Filed Vital Signs Vital Sign Reading Time Taken Comments Blood Pressure 151/81 02/14/2019 11:07 AM EDT Pulse 84 02/14/2019 11:07 AM EDT Temperature - - Respiratory Rate - - Oxygen Saturation - - Inhaled Oxygen Concentration - - Weight 82.1 kg (181 lb) 02/14/2019 11:07 AM EDT Height 165.1 cm (5' 5 ) 02/14/2019 11:07 AM EDT Body Mass Index 30.12 02/14/2019 11:07 AM EDT Plan of Treatment Health Maintenance Due Date Last Done Comments [facility]-Bone Density Scan 1955 [facility]-Depression Screening 1957 [facility]-/Child/Adol SDOH Screenings 1955 [facility]- SDOH Screenings 10/24/1975 [facility]-Adult SDOH Screenings 10/24/1975 [facility]-DTaP,Tdap,and Td Vaccine s (1 - Tdap) 1976 CT Colonography 2002 Colonoscopy 2002 FIT-DNA 2002 FIT 2002 FOBT 2002 Sigmoidoscopy 2002 [facility]-Colorectal Cancer Screening 2002 [facility]-Pneumococcal Vaccine: 50 + Years (1 of 1 - PCV) 10/24/2007 [facility]-Zoster Vaccines (1 of 2) 10/24/2007 [id number] Vaccine ( - 20 24-25 season) 2024 [facility]-Influenza Vaccine (#1) 2025 [facility]-RSV Vaccine: 60+ Years o r (1 - 1-dose 75+ series) 2032 HPV Vaccines Aged Out No longer eligi ble based on patient's age to complete this topic [facility]-HIB Vaccines Aged Out No longer e ligible based on patient's age to complete this topic [facility]-Hepatitis A Vaccines Aged Out No longer eligible based on patient's age to complete this topic [facility]-IPV Vaccines Aged Out No longer e ligible based on patient's age to complete this topic [facility]-Rotavirus Vaccines Aged Out No lo nger eligible based on patient's age to complete this topic Care Teams Sr. Payroll Processor Relationship Specialty Start Date End Date Doris De La Rosa, AERONAUTICAL RESEARCH ENGINEER [address] [place] [address] PCP - General 09/19/20
--- OUTSIDE RECORDS SUMMARY | 2024-12-22 01:39 | XMS_ITS | Encounter Summary ---
Author Organization [facility] Address [address] [place] [id number] Care Team Providers Care Peoplesoft Developer Name Role Phone Brenda Mejia Primary Care Provider [phone] Reason for Visit * Reason Comments Med Refill Encounter Details Date Type Department Care Team (Late st Contact Info) Description 12/10/2024 Refill [facility] 330 [facility] [address] [place] [address] Anshu Maloney APRN 330 [facility] [address] [place], [place] [id number] Primary osteoarthritis involving multiple joints Social History Tobacco Use Types Packs/Day Years [...] encounter Miscellaneous Notes * Telephone Encounter - Kristen Painter MA - 12/10/2024 11:11 AM EDT Rx Refill Note Requested Prescriptions Pending Prescriptions Disp Refills sulindac (CLINORIL) 200 MG tablet [Pharmacy Med Name: sulindac 200 mg tablet] 60 tablet 0 Sig: TAKE ONE TABLET BY MOUTH TWICE DAILY with a MEAL Last office visit with prescribing clinician: 10/31/2024 Last telemedicine visit with prescribing clinician: Visit date not found Next office visit with prescribing clinician: 04/29/2025 Kristen Painter MA 12/10/24, 11:11 EDT Medication sent to pharmacy documented in this encounter Plan of Treatment Upcoming Encounters Date Type Department Care Team (Late st Contact Info) Description 04/29/2025 8:30 AM EST Appointment [facility]HE[facility] DEXA [address] [address] 04/29/2025 9:00 AM EST Office Visit [facility] [address] [place] [address] Anshu Maloney APRN [address] [address] documented as of this encounter Visit Diagnoses Diagnosis Primary osteoarthritis involving multiple joints documented in this encounter Care Teams Peoplesoft Developer Relationship Specialty Start Date End Date Brenda Mejia [place] [place] [address] PCP - General Nurse Practitioner 01/02/24 documented as of this encounter
--- OUTSIDE RECORDS SUMMARY | 2024-12-22 01:39 | XMS_ITS | Encounter Summary ---
Author Organization [facility] Address [address] [place] [address] Care Team Providers Care Feather Sawyer Name Role Phone Brenda Mejia Primary Care Provider [phone] Encounter Details Date Type Department Care Team (Late Contact Info) Description 02/10/2022 Telephone [facility] [address] [place] [address] Jaret Miramontes MD [address] [place] [address] Social History Tobacco Use Types Packs/Day Years [...] Encounters Date Type Department Care Team (Late Contact Info) Description 04/29/2025 8:30 AM EST Appointment [facility] R[facility] DEXA [address] [address] 04/29/2025 9:00 AM EST Office Visit [facility] [address] [address] Anshu Maloney APRN [address] [place] [address] documented as of this encounter Visit Diagnoses Not on filedocumented in this encounter Care Teams Feather Sawyer Relationship Specialty Start Date End Date RobertoBrenda Lashaun [address] [place] [address] PCP - General Nurse Practitioner 01/02/24 documented as of this encounter
[2024-12-22] MEDS: BELLADONNA ALKALOIDS 60 ML ML PO (01:40)
[2024-12-22] MEDS: ASPIRIN 81MG CHEWABLE TABLET 324 MG PO (01:40)
[2024-12-22 01:47] LABS: Hematocrit 42.0 % (37.0-47.0); Hemoglobin 14.4 g/dL (12.2-16.2); Immature Granulocytes % 0.1 %; Mean Corpuscular HGB Conc 34.3 g/dL (31.8-35.4); Mean Corpuscular Hemoglobin 30.1 pg (27.0-31.2); Mean Corpuscular Volume 87.7 fl (81-99); Nucleated Red Blood Cells % 0 %; Platelet Count 199 K/mm3 (142-424); Red Blood Count 4.79 M/mm3 (4.20-5.40); Red Cell Distribution Width-SD 39.7 fL; White Blood Count 6.9 K/mm3 (4.8-10.8)
--- NOTE | 2024-12-22 01:51 | ED_ITS ---
Discharge Plan Disposition Patient Disposition: Home, Self-Care Activity Restrictions/Add. Instructions Additional Instructions/Restrictions: Please follow-up with your primary care provider. Please return to the emergency department if you develop any new or worsening symptoms or become concerned for your health. Clinical Impressions Clinical Impression: Chest pain Print Language Print Language: Samoan Discharge ED Provider: Mynor Amor Adult HPI General Chief complaint: Chest Pain Stated complaint: chest pain Time Seen by Provider: 12/22/24 01:33 Mode of Arrival: Ambulatory Source of Information: Patient Description of Symptoms (Recalled from ER Triage Doc. by RN): Pt presents to ED for CP, back pain, & jaw pain X 1 hour. Pt states at this time she is no longer having pain. Pt is A&O*4 and rates pain 0/10. History of Present Illness HPI narrative: 69-year-old female with history of hypertension, alpha gal, asthma presents for chest pain, jaw pain, back pain. She reports that started about an hour ago. It is since resolved. She denies any shortness of breath. Denies any significant cardiac history. Reports normal dentition. Related Data Allergies Allergy/AdvReac Type Severity Reaction Status Date / Time NO KNOWN ALLERGIES Allergy Uncoded 04/26/17 14:26 [facility] Disclaimer: The information contained in this section may have been updated after the patient was seen, as this information can be updated by other users. Social History Smoking Status: Unknown if ever smoked alcohol intake: never current occupational status: other Travel in the last 8 weeks?: None ROS Obtained: Yes All systems reviewed & no additional complaints except as documented Physical Exam General General appearance: alert and in no apparent distress Head Head exam: atraumatic and normocephalic Eye Eye exam: Present normal appearance, PERRL and EOMI ENT ENT exam: Present normal oropharynx and normal external ear exam Neck Neck exam: Present normal inspection and full ROM Chest Chest inspection: Present normal inspection and symmetric chest wall rise; Absent tenderness Respiratory Respiratory exam: Present normal lung sounds bilaterally; Absent respiratory distress Cardiovascular Cardiovascular exam: Present regular rate and normal rhythm Abdominal Exam Abdominal exam: Present soft; Absent distention, tenderness or guarding Extremities Exam Extremities exam: Present normal inspection; Absent edema or joint swelling Back Exam Back exam: Present normal inspection; Absent tenderness Neurological Exam Neurological exam: Present alert and oriented X3; Absent motor sensory deficit Psychiatric Psychiatric exam: Present normal affect and normal mood Skin Skin exam: Present warm, dry and normal color Lymphatic Lymphatic Findings: no adenopathy Medical Decision Making Medical Records Medical records reviewed: Yes I reviewed the patient's medical records. Screening: Per USPSTF and CDC recommendations, given the prevalence of disease in our region, it is our hospital?s policy to screen for HIV and viral Hepatitis for all patients aged 18 and over and those with ongoing risk factors. Kevin Inquiry Pt receiving controlled substance: No Kevin was queried for this patient: No Vital Signs: 12/22/24 01:33 12/22/24 01:39 12/22/24 01:45 Temperature 97.7 F Temperature Source Oral Pulse Rate 76 80 Pulse Rate [Left] 85 Respiratory Rate 18 14 12 Blood Pressure Blood Pressure [Right Arm] 194/91 H Blood Pressure Mean Blood Pressure Mean [Right Arm] 125 02 Sat by Pulse Oximetry 97 97 98 Oxygen Delivery Method Room Air 12/22/24 02:00 12/22/24 02:00 12/22/24 02:15 Temperature Temperature Source Pulse Rate 66 68 Pulse Rate [Left] Respiratory Rate 15 15 Blood Pressure 136/77 Blood Pressure [Right Arm] Blood Pressure Mean 96 Blood Pressure Mean [Right Arm] 02 Sat by Pulse Oximetry 96 96 Oxygen Delivery Method 12/22/24 02:30 12/22/24 02:45 12/22/24 02:53 Temperature Temperature Source Pulse Rate 62 71 67 Pulse Rate [Left] Respiratory Rate 13 14 15 Blood Pressure 126/70 126/70 Blood Pressure [Right Arm] Blood Pressure Mean Blood Pressure Mean [Right Arm] 02 Sat by Pulse Oximetry 94 L 94 L 93 L Oxygen Delivery Method 12/22/24 03:00 12/22/24 03:30 12/22/24 04:00 Temperature Temperature Source Pulse Rate 70 69 67 Pulse Rate [Left] Respiratory Rate 15 13 14 Blood Pressure 120/65 122/80 128/69 Blood Pressure [Right Arm] Blood Pressure Mean Blood Pressure Mean [Right Arm] 02 Sat by Pulse Oximetry 95 94 L 96 Oxygen Delivery Method 12/22/24 04:24 12/22/24 04:30 12/22/24 04:45 Temperature 97.6 F Temperature Source Pulse Rate 67 64 67 Pulse Rate [Left] Respiratory Rate 14 12 13 Blood Pressure 128/69 116/70 Blood Pressure [Right Arm] Blood Pressure Mean Blood Pressure Mean [Right Arm] 02 Sat by Pulse Oximetry 95 94 L 95 Oxygen Delivery Method 12/22/24 05:00 Temperature 98.7 F Temperature Source Oral Pulse Rate 65 Pulse Rate [Left] Respiratory Rate 13 Blood Pressure 116/70 Blood Pressure [Right Arm] Blood Pressure Mean Blood Pressure Mean [Right Arm] 02 Sat by Pulse Oximetry Oxygen Delivery Method Room Air Lab Data Lab results reviewed: Yes I reviewed the patient's lab results. Lab Results 12/22/24 01:33: WBC 6.9, RBC 4.79, Hgb 14.4, Hct 42.0, MCV 87.7, MCH 30.1, MCHC 34.3, RDW 12.5, Plt Count 199, MPV 9.8, Neut % (Auto) 30.0 L, Lymph % (Auto) 50.4 H, Upson % (Auto) 11.9 H, Eos % (Auto) 7.0, Baso % (Auto) 0.6, Neut # (Auto) 2.1, Lymph # (Auto) 3.5, Upson # (Auto) 0.8, Eos # (Auto) 0.5 H, Baso # (Auto) 0.0, D-Dimer 0.93 H, Sodium 141, Potassium 3.8, Chloride 105, Carbon Dioxide 27, Anion Gap 12.8, BUN 27 H, Creatinine 0.70, Estimated Creat Clear 65, Estimated GFR 83, Est GFR ( Amer) 101, Glucose 92, Calcium 10.2, Total Bilirubin 1.3, AST 42 H, ALT 21, Alkaline Phosphatase 98, Troponin I < 0.01, Total Protein 8.0, Albumin 5.1 H, Globulin 2.9, Albumin/Globulin Ratio 1.8 12/22/24 04:23: Troponin I < 0.01 12/22/24 01:33 12/22/24 01:33 Orders (Tests/Meds): ED MEDICATIONS Discontinued Medications Generic Name Dose Route Start Last Admin Trade Name Jose Miguelq PRN Reason Stop Dose Admin Acetaminophen 1,000 mg 12/22/24 01:34 12/22/24 01:45 Acetaminophen 500mg Tab PO 12/22/24 01:35 Not Given ONCE ONE Aspirin 324 mg 12/22/24 01:34 12/22/24 01:40 Aspirin 81mg Chewable Tablet PO 12/22/24 01:35 324 mg ONCE ONE Administration Belladonna Alkaloids 60 ml 12/22/24 01:34 12/22/24 01:40 Belladonna Alkaloids 60 Ml Ml PO 12/22/24 01:35 60 ml ONCE ONE Administration ORDERS Category Date Time Status CXR --portable [XR chest portable] Stat Exams 12/22/24 01:34 Completed CBC w/Auto Diff [Complete Blood Count Auto Diff] Stat Lab 12/22/24 01:33 Completed CMP [Comprehensive Metabolic Panel] Stat Lab 12/22/24 01:33 Completed D-Dimer Stat Lab 12/22/24 01:33 Completed Troponin I Q3H Lab 12/22/24 01:33 Completed Troponin I Q3H Lab 12/22/24 04:23 Completed ECG Data Tracing #1: I reviewed this ECG and interpreted as documented below: Sinus rhythm, rate of 76, no significant ST or T wave changes, no evidence of arrhythmia ECG initial impression date: 12/22/24 ECG initial impression time: 01:33 HEART Score History (anamnesis): Slightly suspicious ECG: Normal Age: >65 years Risk factors: 1-2 risk factors Troponin: </= normal limit HEART Score: 3 Medical Decision Narrative: 69-year-old female with history of asthma, hypertension, alpha gal presents for 1 hour of chest pain and jaw pain that is since resolved. History was obtained via interactive discussion with patient. On arrival, patient is [afebrile, hemodynamically stable, satting appropriately, alert, oriented x4, GCS 15], moving all extremities spontaneously. Full physical exam performed and significant for no significant physical exam abnormality Differential includes but is not limited to ACS, PE, esophageal pathology, musculoskeletal pain, reflux. Patient was given Tylenol, aspirin, GI cocktail for symptomatic management and correction of underlying abnormalities. Workup initiated including CBC CMP D- dimer troponin EKG chest x-ray.. On re-evaluation, patient [remains afebrile, HD stable.] Laboratory workup independently interpreted by me and significant for D-dimer negative by years criteria. Negative initial troponin, minimally elevated BUN.. Imaging independently interpreted by me and significant for clear lungs bilaterally without focal opacity. See radiology read for full review of final results. Patient was placed in ED observation status for continuous cardiac monitoring and serial cardiac enzymes. On reassessment, patient lamin stable and continues to be asymptomatic. Repeat troponin returns undetectably low. Low concern for emergent pathology at this time. Given this, patient was deemed appropriate for discharge with outpatient management. Interactive discussion was had with patient regarding her presentation and discharge. Return precautions given. Procedures Risk/Benefits of Procedure(s) Were Explained: Yes Critical Care Critical Care Time Critical Care Time: No
[2024-12-22 01:54] LABS: Alanine Aminotransferase 21 U/L (12-78); Albumin Level 5.1 g/dl (3.5-5.0); Albumin/Globulin Ratio 1.8 (1.1-1.8); Alkaline Phosphatase 98 U/L (38-126); Anion Gap 12.8 mEq/L (5-15); Aspartate Amino Transferase 42 U/L (14-36); Bilirubin,Total 1.3 mg/dl (0.2-1.3); Blood Urea Nitrogen 27 mg/dl (7-17); Calcium 10.2 mg/dl (8.4-10.2); Carbon Dioxide 27 mmol/L (22.0-30.0); Chloride 105 mmol/L (98-107); Creatinine Clearance Estimated 65 mL/min (50-200); Creatinine,Serum 0.70 mg/dl (0.52-1.04); Estimated Glomerular Filt Rate 83 ml/min (>60); GFR (African American) 101 ML/MIN (>60); Globulin 2.9 g/dL (1.3-3.2); Glucose 92 mg/dl (74-100); Potassium 3.8 mmoL/L (3.5-5.1); Sodium 141 mmol/L (136-145); Total Protein,Serum 8.0 g/dl (6.3-8.2)
[2024-12-22 01:58] LABS: D-Dimer 0.93 ug/mL (0.0-0.5)
[2024-12-22 02:11] LABS: Troponin I < 0.01 ng/ml (0.00-0.034)
[2024-12-22 04:55] LABS: Troponin I < 0.01 ng/ml (0.00-0.034)
== END 2024-12-22 05:01 | disposition home or self-care (01) ==
PROVIDERS: Emergency Provider Emergency Medicine
DX: R07.9 Chest pain, unspecified (principal)
CPT/HCPCS: 71045; 80053; 84484; 85025; 85378; 93005; 99284

== ENCOUNTER 2025-02-06 07:54 | Outpatient (CLI) | payer MEDICARE, SELFPAY ==
--- OUTSIDE RECORDS SUMMARY | 2025-02-06 07:57 | XMS_ITS | Encounter Summary ---
Author Organization [facility] Address [address] [place] [address] Care Team Providers Care Vest Maker Name Role Phone Brenda Mejia Primary Care Provider [phone] Encounter Details Date Type Department Care Team (Late Contact Info) Description 07/24/2024 Results Follow-Up [facility] [address] [id number] Anshu Maloney APRN [address] [place] [address] Social History Tobacco Use Types Packs/Day Years [...] Info) Description 04/29/2025 8:30 AM EST Appointment [facility]AT[facility] DEXA [address] [address] 04/29/2025 9:00 AM EST Office Visit [facility] [address] [address] Anshu Maloney APRN [address] [place] [address] documented as of this encounter Visit Diagnoses Not on filedocumented in this encounter Care Teams Vest Maker Relationship Specialty Start Date End Date RobertoBrenda Lashaun [address] [place] [address] PCP - General Nurse Practitioner 01/02/24 documented as of this encounter
--- OUTSIDE RECORDS SUMMARY | 2025-02-06 07:58 | XMS_ITS | Data Portability ---
Author Organization [employer] [facility] Address [address] [place] [address] Assessment Encounter Date Assessment Date Assessment LastModified by Organization Details LastModified Time 10/17/2024 10/17/2024 Symptoms/PE consistent with bronchitis. Will treat per plan below. Increase oral fluids. Follow up if no improvement or worsening and PRN. Would consider chest XR if not improving with 48 hours of antibiotic/cortic osteroid treatment. Not available 10/17/2024 12:58:13 10/26/2024 10/26/2024 HTN controlled. Last labs reviewed from July 2024. We will repeat at follow up and then plan for 6 month follow up thereafter as long as patient is stable. Continue current regimen. Asthma controlled, rarely uses albuterol inhaler. Vaccine counseling provided. Patient agreeable to update shingrix, pneumococcal today. Not available 11/02/2024 07:35:19 12/31/2024 12/31/2024 Treating for asthma exacerbation. Chest xr to r/o pneumonia given duration of symptoms. Follow up if no improvement or worsening and as planned. To ER with worsening shortness of breath. Nebulizer for PRN use. If not improving or another flare, may consider PFT's. Not available 01/02/2025 18:17:50 01/23/2025 01/23/2025 Patient presente d to office today for their Medicare Annual Wellness Visit. Education was provided on healthy nutrition, including a diet rich in fruits and vegetables, minimizing simple carbohydrates, salt, and saturated fats. Encouraged regular cardiovascular exercise such as walking at least 30 minutes daily, 5 times per week. Emphasized preventive health measures and educated pt on fall prevention and community-based lifestyle interventions to help reduce health risks and promote healthy living. Follow up in 3 months for recheck, sooner if needed. Will see podiatrist before that appt, may not see rheumatology until after that appt (due later in Apr). Not available 01/23/2025 10:49:55 Plan of Treatment Reminders Order Date Submit Date Provider Last Modified By Organization Details Last Modified Time Details Appointments FOLLOW UP 30 2024 09:00A Shea Bennett Not available Not available Not available Lab unlisted lab - toxassure flex 20, [id number] 2024 025 [facility]), [address] [place], [address], 01/27/2025 12:07:19 Hepatitis C IgG Ab, qual, serum 2024 025 [facility]), [address] [place], [address], 01/27/2025 12:07:22 HIV 1 + 2, meaningfu l use set 2024 025 [facility]), [address] [place], [address], 01/27/2025 12:07:23 CBC w/ auto diff 2024 025 [facility]), [address] [place], [address], 01/27/2025 12:07:21 CMP, serum or plasma 2024 025 [facility] [address] [place], [address], 01/27/2025 12:07:21 lipid panel, serum 2024 025 [facility]), [address] [place], [address], 01/27/2025 12:07:22 TSH + free T4, serum 2024 025 [facility] [address] [place], [address], 01/27/2025 12:07:20 lipid panel, serum 2024 025 [facility] [address] [place], [address], 07/24/2024 08:12:58 CBC w/ auto diff 2024 025 [facility] [address] [place], [address], 07/24/2024 08:12:57 CMP, serum or plasma 2024 025 [facility] [address] [place], [address], 07/24/2024 08:12:57 TSH + free T4, serum 2024 025 [facility] [address] [place], [address], 07/24/2024 08:12:56 HbA1c (hemoglob in A1c), blood 2024 025 [facility] [address] [place], [address], 07/24/2024 08:12:59 cobalamin and folate panel, serum 2024 025 RAHUL [facility] ([place]), [address] [place], [address], 07/24/2024 08:12:58 vitamin D, 25-hydrox y, total, serum 2024 025 RAHUL [facility] ([place]), [address] [place], [address], 07/24/2024 08:12:59 Referral None recorded. Procedures colonosco py screening (PROC) 2024 025 HAYFORKAUBREY Mcarthur MD, [address], [place], [address], 01/24/2025 11:31:07 Surgeries None recorded. Imaging MAMMO, screening , digital, bilateral [address] (Scheduling), [address], [place], [address], 01/30/2025 13:25:13 XR, chest, 2 view 2024 [facility], [address] [place] [address], [id number], 12/31/2024 14:39:07 Medication Orders amlodipin e 10 mg tablet [address] [facility], [address] [place] [address], [address], 01/31/2025 14:15:22 losartan 50 mg-hydroc hlorothia zide 12.5 mg tablet [address] [facility], [address] [place] [address], [address], 01/28/2025 17:48:36 atorvasta tin 20 mg tablet [address] [facility], [address] [place] [address], [address], 01/31/2025 14:15:21 omeprazol e 20 mg capsule,d elayed release [address] [facility], [address] [place] [address], [address], 01/23/2025 11:15:52 Medrol (Kishore) 4 mg tablets in a dose pack [address] [facility], [address] [place] [address], [address], 01/23/2025 11:15:52 ipratropi um 0.5 mg-albute rol 3 mg (2.5 mg base)/3 mL nebulizat ion soln 2024 025 Not available 01/01/2025 11:46:54 albuterol sulfate 2.5 mg/3 mL (0.083 %) solution for nebulizat ion [address] [facility], [address] [place] [address], [address], 12/31/2024 11:08:58 losartan 50 mg-hydroc hlorothia zide 12.5 mg tablet [address] [facility], [address] [place] [address], [address], 12/31/2024 11:08:58 albuterol sulfate HFA 90 mcg/actua tion aerosol inhaler [address] [facility], [address] [place] [address], [address], 12/31/2024 11:08:57 levothyro xine 100 mcg tablet [address] [facility], [address] [place] [address], [address], 12/31/2024 11:08:58 amlodipin e 10 mg tablet [address] [facility], [address] [place] [address], [address], 10/26/2024 17:12:45 atorvasta tin 20 mg tablet [address] [facility], [address] [place] [address], [address], 10/26/2024 17:12:44 albuterol sulfate HFA 90 mcg/actua tion aerosol inhaler [address] [facility], [address] [place] [address], [address], 11/08/2024 11:05:19 prednison e 20 mg tablet [address] [facility], [address] [place] [address], [address], 10/26/2024 16:47:18 benzonata te 200 mg capsule [address] [facility], [address] [place] [address], [address], 10/26/2024 16:47:20 azithromy arnaldo 250 mg tablet [address] [facility], [address] [place] [address], [address], 10/26/2024 16:47:18 famotidin e 20 mg tablet [address] [facility], [address] [place] [address], [address], 07/23/2024 10:10:27 amlodipin e 10 mg tablet [address] [facility], [address] [place] [address], [address], 07/23/2024 10:10:26 atorvasta tin 20 mg tablet [address] [facility], [address] [place] [address], [address], 07/23/2024 10:10:25 losartan 50 mg-hydroc hlorothia zide 12.5 mg tablet [address] [facility], [address] [place] [address], [address], 09/24/2024 12:23:49 Patient TargetsNo targets recorded. Patient Instructions Encounter Date Encounter Id Patient Instructions Last Modified By Organization Details Last Modified Time 10/26/2024 [id number] learning about healthy weight Not available 11/02/2024 07:33:38 01/23/2025 [id number] advance care planning: care instructions Not available 01/23/2025 10:44:32 Discussed and explained advance directives such as standard forms to the patient. Face to face discussion lasted for a duration of 2.5 minutes. Not available 01/23/2025 10:42:02 Reason for Referral None Reported. Results Created Date Observation Date Name Description Value Unit Range Abnormal Flag Note LastModifiedBy Organization Detail LastModifiedTime 07/24/1907/24/2024 TSH+F REE T4 TSH 1.110 uIU/m L 0.450- 4.500 normal Not Available [facility] ([facility]) [address] [place], [address], 07/24/2024 08:12:56 07/24/1907/24/2024 TSH+F REE T4 T4,free(dire ct) 1.82 NG/dL 0.82-1 .77 above high normal Not Available [facility] ([facility]) [address] [place], [address], 07/24/2024 08:12:56 07/24/1907/24/2024 CBC WITH DIFFE RENTI AL/PL ATELE T WBC 4.5 x10e3 /uL 3.4-10 .8 normal Not Available [facility] ([facility]) [address] [place], [address], 07/24/2024 08:12:57 07/24/19 25 07/24/2024 CBC WITH DIFFE RENTI AL/PL ATELE T RBC 4.42 x10e6 /uL 3.77-5 .28 normal Not Available [facility] ([facility]) [address] [facility], [place], [address], 07/24/2024 08:12:57 07/24/1907/24/2024 CBC WITH DIFFE RENTI AL/PL ATELE T hemoglobin 13.3 g/dL 11.1-1 5.9 normal Not Available [facility] ([facility]) [address] [facility], [place], [address], 07/24/2024 08:12:57 07/24/19 25 07/24/2024 CBC WITH DIFFE RENTI AL/PL ATELE T hematocrit 40.1 % 34.0-4 6.6 normal Not Available [facility] ([facility]) [address] [facility], [place], [address], 07/24/2024 08:12:57 07/24/19 25 07/24/2024 CBC WITH DIFFE RENTI AL/PL ATELE T MCV 91 fL 79-97 normal Not Available [facility] ([facility]) [address] [facility], [place], [address], 07/24/2024 08:12:57 07/24/1907/24/2024 CBC WITH DIFFE RENTI AL/PL ATELE T MCH 30.1 pg 26.6-3 3.0 normal Not Available [facility] ([facility]) [address] [facility], [place], [address], 07/24/2024 08:12:57 07/24/1907/24/2024 CBC WITH DIFFE RENTI AL/PL ATELE T MCHC 33.2 g/dL 31.5-3 5.7 normal Not Available [facility] ([facility]) [address] [place], [address], 07/24/2024 08:12:57 07/24/19 25 07/24/2024 CBC WITH DIFFE RENTI AL/PL ATELE T RDW 12.3 % 11.7-1 5.4 Not Available [facility] ([facility]) [address] [facility], [place], [address], 07/24/2024 08:12:57 07/24/1907/24/2024 CBC WITH DIFFE RENTI AL/PL ATELE T platelets 240 x10e3 /uL 150-45 0 normal Not Available [facility] ([facility]) [address] [facility], [place], [address], 07/24/2024 08:12:57 07/24/19 25 07/24/2024 CBC WITH DIFFE RENTI AL/PL ATELE T neutrophils 46 % not estab. normal Not Available [facility] ([facility]) [address] [facility], [place], [address], 07/24/2024 08:12:57 07/24/1907/24/2024 CBC WITH DIFFE RENTI AL/PL ATELE T lymphs 37 % not estab. normal Not Available [facility] ([facility]) [address] [facility], [place], [address], 07/24/2024 08:12:57 07/24/19 25 07/24/2024 CBC WITH DIFFE RENTI AL/PL ATELE T monocytes 12 % not estab. normal Not Available [facility] ([facility]) [address] [facility], [place], [address], 07/24/2024 08:12:57 07/24/1907/24/2024 CBC WITH DIFFE RENTI AL/PL ATELE T eos 4 % not estab. normal Not Available [facility] ([facility]) [address] [facility], [place], [address], 07/24/2024 08:12:57 07/24/1907/24/2024 CBC WITH DIFFE RENTI AL/PL ATELE T basos 1 % not estab. normal Not Available [facility] ([facility]) [address] [facility], [place], [address], 07/24/2024 08:12:57 07/24/19 25 07/24/2024 CBC WITH DIFFE RENTI AL/PL ATELE T immature cells PROPULSION GENERATOR REPAIRER Not Available [facility] ([facility]) [address] [place], [address], 07/24/2024 08:12:57 07/24/19 25 07/24/2024 CBC WITH DIFFE RENTI AL/PL ATELE T neutrophils (absolute) 2.1 x10e3 /uL 1.4-7. 0 normal Not Available [facility] ([facility]) [address] [place], [address], 07/24/2024 08:12:57 07/24/19 25 07/24/2024 CBC WITH DIFFE RENTI AL/PL ATELE T lymphs (absolute) 1.7 x10e3 /uL 0.7-3. 1 normal Not Available [facility] ([facility]) [address] [place], [address], 07/24/2024 08:12:57 07/24/19 25 07/24/2024 CBC WITH DIFFE RENTI AL/PL ATELE T monocytes(ab solute) 0.5 x10e3 /uL 0.1-0. 9 normal Not Available [facility] ([facility]) [address] [place], [address], 07/24/2024 08:12:57 07/24/19 25 07/24/2024 CBC WITH DIFFE RENTI AL/PL ATELE T eos (absolute) 0.2 x10e3 /uL 0.0-0. 4 normal Not Available [facility] ([facility]) [address] [place], [address], 07/24/2024 08:12:57 07/24/19 25 07/24/2024 CBC WITH DIFFE RENTI AL/PL ATELE T baso (absolute) 0.0 x10e3 /uL 0.0-0. 2 normal Not Available [facility] ([facility]) [address] [place], [address], 07/24/2024 08:12:57 07/24/19 25 07/24/2024 CBC WITH DIFFE RENTI AL/PL ATELE T immature granulocytes 0 % not estab. Not Available [facility] ([facility]) [address] [facility], [place], [address], 07/24/2024 08:12:57 07/24/19 25 07/24/2024 CBC WITH DIFFE RENTI AL/PL ATELE T immature grans (abs) 0.0 x10e3 /uL 0.0-0. 1 Not Available [facility] ([facility]) [address] [facility], [place], [address], 07/24/2024 08:12:57 07/24/19 25 07/24/2024 CBC WITH DIFFE RENTI AL/PL ATELE T NRBC PROPULSION GENERATOR REPAIRER Not Available [facility] ([facility]) [address] [facility], [place], [address], 07/24/2024 08:12:57 07/24/19 25 07/24/2024 CBC WITH DIFFE RENTI AL/PL ATELE T hematology comments: PROPULSION GENERATOR REPAIRER Not Available [facility] ([facility]) [address] [facility], [place], [address], 07/24/2024 08:12:57 07/24/19 25 07/24/2024 COMP. METAB OLIC PANEL (14) glucose 91 mg/dL 70-99 normal Not Available [facility] ([facility]) [address] [facility], [place], [address], 07/24/2024 08:12:57 07/24/19 25 07/24/2024 COMP. METAB OLIC PANEL (14) BUN 18 mg/dL 8-27 normal Not Available [facility] ([facility]) [address] [place], [address], 07/24/2024 08:12:57 07/24/19 25 07/24/2024 COMP. METAB OLIC PANEL (14) creatinine 0.72 mg/dL 0.57-1 .00 normal Not Available [facility] ([facility]) [address] [facility] [place], [address], 07/24/2024 08:12:57 07/24/19 25 07/24/2024 COMP. METAB OLIC PANEL (14) eGFR 92 mL/mi n/1.7 3 >59 normal Not Available [facility] ([facility]) [address] [facility], [place], [address], 07/24/2024 08:12:57 07/24/19 25 07/24/2024 COMP. METAB OLIC PANEL (14) BUN/creatini ne ratio 25 12-28 normal Not Available [facility] ([facility]) [address] [facility], [place], [address], 07/24/2024 08:12:57 07/24/19 25 07/24/2024 COMP. METAB OLIC PANEL (14) sodium 142 mmol/ L 134-14 4 normal Not Available [facility] ([facility]) [address] [place], [address], 07/24/2024 08:12:57 07/24/19 25 07/24/2024 COMP. METAB OLIC PANEL (14) potassium 3.9 mmol/ L 3.5-5. 2 normal Not Available [facility] ([facility]) [address] [facility], [place], [address], 07/24/2024 08:12:57 07/24/19 25 07/24/2024 COMP. METAB OLIC PANEL (14) chloride 105 mmol/ L 96-106 normal Not Available [facility] ([facility]) [address] [facility], [place], [address], 07/24/2024 08:12:57 07/24/19 25 07/24/2024 COMP. METAB OLIC PANEL (14) carbon dioxide, total 23 mmol/ L 20-29 normal Not Available [facility] ([facility]) [address] [facility] [place], [address], 07/24/2024 08:12:57 07/24/19 25 07/24/2024 COMP. METAB OLIC PANEL (14) calcium 9.9 mg/dL 8.7-10 .3 normal Not Available [facility] ([facility]) [address] [facility] [place], [address], 07/24/2024 08:12:57 07/24/19 25 07/24/2024 COMP. METAB OLIC PANEL (14) protein, total 7.3 g/dL 6.0-8. 5 normal Not Available [facility] ([facility]) [address] [facility] [place], [address], 07/24/2024 08:12:57 07/24/19 25 07/24/2024 COMP. METAB OLIC PANEL (14) albumin 4.8 g/dL 3.9-4. 9 normal Not Available [facility] ([facility]) [address] [facility] [place], [address], 07/24/2024 08:12:57 07/24/19 25 07/24/2024 COMP. METAB OLIC PANEL (14) globulin, total 2.5 g/dL 1.5-4. 5 Not Available [facility] ([facility]) [address] [facility] [place], [address], 07/24/2024 08:12:57 07/24/19 25 07/24/2024 COMP. METAB OLIC PANEL (14) bilirubin, total 1.1 mg/dL 0.0-1. 2 normal Not Available [facility] ([facility]) [address] [facility] [place], [address], 07/24/2024 08:12:57 07/24/19 25 07/24/2024 COMP. METAB OLIC PANEL (14) alkaline phosphatase 97 IU/L 44-121 normal Not Available [facility] ([facility]) [address] [facility] [place], [address], 07/24/2024 08:12:57 07/24/19 25 07/24/2024 COMP. METAB OLIC PANEL (14) AST (SGOT) 23 IU/L 0-40 normal Not Available [facility] ([facility]) [address] [facility] [place], [address], 07/24/2024 08:12:57 07/24/19 25 07/24/2024 COMP. METAB OLIC PANEL (14) ALT (SGPT) 15 IU/L 0-32 normal Not Available [facility] ([facility]) [address] [place], [address], 07/24/2024 08:12:57 07/24/19 25 07/24/2024 LIPID PANEL cholesterol, total 127 mg/dL 100-19 9 normal Not Available [facility] ([facility]) [address] [place], [address], 07/24/2024 08:12:58 07/24/19 25 07/24/2024 LIPID PANEL triglyceride s 67 mg/dL 0-149 normal Not Available [facility] ([facility]) [address] [place], [address], 07/24/2024 08:12:58 07/24/19 25 07/24/2024 LIPID PANEL HDL cholesterol 54 mg/dL >39 normal Not Available [facility] ([facility]) [address] [place], [address], 07/24/2024 08:12:58 07/24/19 25 07/24/2024 LIPID PANEL VLDL cholesterol tripp 14 mg/dL 5-40 Not Available [facility] ([facility]) [address] [place], [address], 07/24/2024 08:12:58 07/24/19 25 07/24/2024 LIPID PANEL LDL chol calc ([facility]) 59 mg/dL 0-99 Not Available [facility] ([facility]) [address] [place], [address], 07/24/2024 08:12:58 07/24/19 25 07/24/2024 LIPID PANEL LDL calc comment: PROPULSION GENERATOR REPAIRER Not Available [facility] ([facility]) [address] [facility], [place], [address], 07/24/2024 08:12:58 07/24/19 25 07/24/2024 VITAM IN B12 AND FOLAT E vitamin B12 742 pg/mL 232-12 45 normal Not Available [facility] ([facility]) [address] [facility], [place], [address], 07/24/2024 08:12:58 07/24/1907/24/2024 VITAM IN B12 AND FOLAT E folate (folic acid), serum >20.0 NG/mL >3.0 A serum folat e alissa ntrat ion of less than 3.1 ng/mL is consi dered to repre sent clini tripp defic iency . Not Available [facility] ([facility]) [address] [facility], [place], [address], 07/24/2024 08:12:58 07/24/1907/24/2024 HEMOG LOBIN A1C hemoglobin A1C 5.4 % 4.8-5. 6 normal Predi abete s: 5.7 - 6.4 Diabe anjali: >6.4 Glyce nazario contr ol for adult s with diabe anjali: <7.0 Not Available [facility] ([facility]) [address] [place], [address], 07/24/2024 08:12:59 07/24/19 25 07/24/2024 VITAM IN D, 25-HY DROXY vitamin D, 25-hydroxy 79.6 NG/mL 30.0-1 00.0 Vitam in D defic iency has been defin ed by the Insti tute of Medic ine and an Endoc rine Socie ty pract ice guide line as a level of serum 25-OH vitam in D less than 20 ng/mL (1,2) . The Endoc rine Socie ty went on to furth er defin e vitam in D insuf ficie ncy as a level betwe en 21 and 29 ng/mL (2). 1. IOM (Inst itute of Medic ine). 2010. Javan ry refer ence lorna es for calci um and D. Rubina berger DC: The [facility] [employer] ca[employer] . 2. Robert rosas MF, Aleida medina [place], Bisch off-F errar i HARRIS, et al. Evalu ation , treat ment, and preve ntion of vitam in D defic iency : an Endoc rine Socie ty clini tripp pract ice guide line. JCEM. 2010; 96(7) :1911 -30. Not Available [facility] ([facility]) [address], [place], [address], 07/24/2024 08:12:59 01/24/20 25 01/27/2025 TOXAS SURE FLEX 20, UR summary report FINAL ===== ===== ===== ===== ===== ===== ===== ===== ===== ===== ===== ===== ===== === Gabap entin , MS, Ur RFX ToxAs sure Flex 20, Ur ===== ===== ===== ===== ===== ===== ===== ===== ===== ===== ===== ===== ===== === Test Resul t Flag Units Drug Prese nt Gabap entin PRESE NT ===== ===== ===== ===== ===== ===== ===== ===== ===== ===== ===== ===== ===== === Test Resul t Flag Units Ref Range Creat inine 64 mg/dL >=20 ===== ===== ===== ===== ===== ===== ===== ===== ===== ===== ===== ===== ===== === Decla red Medic ation s: Medic ation list was not provi ded. ===== ===== ===== ===== ===== ===== ===== ===== ===== ===== ===== ===== ===== === For clini tripp consu ltati on, pleas e call . ===== ===== ===== ===== ===== ===== ===== ===== ===== ===== ===== ===== ===== === Not Available [facility] ([facility]) [address] [place], [address], 01/27/2025 12:07:19 01/24/20 25 01/27/2025 TOXAS SURE FLEX 20, UR pdf . Not Available [facility] ([facility]) [address] [place], [address], 01/27/2025 12:07:19 01/24/20 25 01/27/2025 TOXAS SURE FLEX 20, UR creatinine 64 mg/dL >=20 REFER ENCE RANGE : Ref Range >=20 Not Available [facility] ([facility]) [address] [place], [address], 01/27/2025 12:07:19 01/24/20 25 01/27/2025 TOXAS SURE FLEX 20, UR amphetamines ia Negati ve NG/mL cutoff :300 Not Available [facility] ([facility]) [address] [place], [address], 01/27/2025 12:07:19 01/24/20 25 01/27/2025 TOXAS SURE FLEX 20, UR benzodiazepi deyvi Negati ve Not Available [facility] ([facility]) [address] [place], [address], 01/27/2025 12:07:19 01/24/20 25 01/27/2025 TOXAS SURE FLEX 20, UR diazepam Not Detect ed NG/mg _crea t Not Available [facility] ([facility]) [address] [place], [address], 01/27/2025 12:07:19 01/24/20 25 01/27/2025 TOXAS SURE FLEX 20, UR desmethyldia zepam Not Detect ed NG/mg _crea t Not Available [facility] ([facility]) [address] [place], [address], 01/27/2025 12:07:19 01/24/20 25 01/27/2025 TOXAS SURE FLEX 20, UR oxazepam Not Detect ed NG/mg _crea t Not Available [facility] ([facility]) [address] [place], [address], 01/27/2025 12:07:19 01/24/20 25 01/27/2025 TOXAS SURE FLEX 20, UR temazepam Not Detect ed NG/mg _crea t Expec melania metab olism of benzo diaze pine class drugs : Paren t Drug Detec melania Metab olite s ----- ----- - ----- ----- ----- ----- Diaze ivelisse: Desme thyld iazep am, Temaz epam, Oxaze ivelisse Chlor diaze poxid e: Desme thyld iazep am, Oxaze ivelisse Clora zepat e: Desme thyld iazep am, Oxaze ivelisse Halaz epam: Desme thyld iazep am, Oxaze ivelisse Temaz epam: Oxaze ivelisse Oxaze ivleisse: None Not Available [facility] ([facility]) [address] [place], [address], 01/27/2025 12:07:19 01/24/20 25 01/27/2025 TOXAS SURE FLEX 20, UR alprazolam Not Detect ed NG/mg _crea t Not Available [facility] ([facility]) [address] [place], [address], 01/27/2025 12:07:19 01/24/20 25 01/27/2025 TOXAS SURE FLEX 20, UR alpha-hydrox yalprazolam Not Detect ed NG/mg _crea t Not Available [facility] ([facility]) [address] [place], [address], 01/27/2025 12:07:19 01/24/20 25 01/27/2025 TOXAS SURE FLEX 20, UR desalkylflur azepam Not Detect ed NG/mg _crea t Not Available [facility] ([facility]) [address] [place], [address], 01/27/2025 12:07:19 01/24/20 25 01/27/2025 TOXAS SURE FLEX 20, UR lorazepam Not Detect ed NG/mg _crea t Not Available [facility] ([facility]) [address] [place], [address], 01/27/2025 12:07:19 01/24/20 25 01/27/2025 TOXAS SURE FLEX 20, UR alpha-hydrox ytriazolam Not Detect ed NG/mg _crea t Not Available [facility] ([facility]) [address] [place] [address], [id number], 01/27/2025 12:07:19 01/24/20 25 01/27/2025 TOXAS SURE FLEX 20, UR clonazepam Not Detect ed NG/mg _crea t Not Available [facility] ([facility]) [address] [place], [address], 01/27/2025 12:07:19 01/24/20 25 01/27/2025 TOXAS SURE FLEX 20, UR 7-aminoclona zepam Not Detect ed NG/mg _crea t Not Available [facility] ([facility]) [address] [place], [address], 01/27/2025 12:07:19 01/24/20 25 01/27/2025 TOXAS SURE FLEX 20, UR midazolam Not Detect ed NG/mg _crea t Not Available [facility] ([facility]) [address] [place], [address], 01/27/2025 12:07:19 01/24/20 25 01/27/2025 TOXAS SURE FLEX 20, UR alpha-hydrox ymidazolam Not Detect ed NG/mg _crea t Not Available [facility] ([facility]) [address] [place], [address], 01/27/2025 12:07:19 01/24/20 25 01/27/2025 TOXAS SURE FLEX 20, UR flunitrazepa m Not Detect ed NG/mg _crea t Not Available [facility] ([facility]) [address] [place], [address], 01/27/2025 12:07:19 01/24/20 25 01/27/2025 TOXAS SURE FLEX 20, UR desmethylflu nitrazepam Not Detect ed NG/mg _crea t Not Available [facility] ([facility]) [address] [place], [address], 01/27/2025 12:07:19 01/24/20 25 01/27/2025 TOXAS SURE FLEX 20, UR cocaine metabolite ia Negati ve NG/mL cutoff :150 Not Available [facility] ([facility]) [address] [place], [address], 01/27/2025 12:07:19 01/24/20 25 01/27/2025 TOXAS SURE FLEX 20, UR ethanol biomarkers ia Negati ve NG/mL cutoff :500 Not Available [facility] ([facility]) [address] [place], [address], 01/27/2025 12:07:19 01/24/20 25 01/27/2025 TOXAS SURE FLEX 20, UR cannabinoids ia Negati ve NG/mL cutoff :20 Not Available [facility] ([facility]) [address] [place], [address], 01/27/2025 12:07:19 01/24/20 25 01/27/2025 TOXAS SURE FLEX 20, UR 6-acetylmorp martha ia Negati ve NG/mL cutoff :10 Not Available [facility] ([facility]) [address] [place], [address], 01/27/2025 12:07:19 01/24/20 25 01/27/2025 TOXAS SURE FLEX 20, UR opiate class ia Negati ve NG/mL cutoff :100 Not Available [facility] ([facility]) [address] [place], [address], 01/27/2025 12:07:19 01/24/20 25 01/27/2025 TOXAS SURE FLEX 20, UR oxycodone class ia Negati ve NG/mL cutoff :100 Not Available [facility] ([facility]) [address] [place], [address], 01/27/2025 12:07:19 01/24/20 25 01/27/2025 TOXAS SURE FLEX 20, UR methadone ia Negati ve NG/mL cutoff :100 Not Available [facility] ([facility]) [address] [place] [address], [address], 01/27/2025 12:07:19 01/24/20 25 01/27/2025 TOXAS SURE FLEX 20, UR methadone mtb ia Negati ve NG/mL cutoff :100 Not Available [facility] ([facility]) [address] [place], [address], 01/27/2025 12:07:19 01/24/20 25 01/27/2025 TOXAS SURE FLEX 20, UR buprenorphin e ia Negati ve NG/mL cutoff :5.0 Not Available [facility] ([facility]) [address] [place], [address], 01/27/2025 12:07:19 01/24/20 25 01/27/2025 TOXAS SURE FLEX 20, UR fentanyl ia Negati ve NG/mL cutoff :2.0 Not Available [facility] ([facility]) [address] [place], [address], 01/27/2025 12:07:19 01/24/20 25 01/27/2025 TOXAS SURE FLEX 20, UR tapentadol ia Negati ve NG/mL cutoff :200 Not Available [facility] ([facility]) [address] [place], [address], 01/27/2025 12:07:19 01/24/20 25 01/27/2025 TOXAS SURE FLEX 20, UR propoxyphene ia Negati ve NG/mL cutoff :300 Not Available [facility] ([facility]) [address] [place], [address], 01/27/2025 12:07:19 01/24/20 25 01/27/2025 TOXAS SURE FLEX 20, UR tramadol ia Negati ve NG/mL cutoff :200 Not Available [facility] ([facility]) [address] [place], [address], 01/27/2025 12:07:19 01/24/20 25 01/27/2025 TOXAS SURE FLEX 20, UR methylphenid ate ia Negati ve NG/mL cutoff :100 Not Available [facility] ([facility]) [address] [place], [address], 01/27/2025 12:07:19 01/24/20 25 01/27/2025 TOXAS SURE FLEX 20, UR barbiturates ia Negati ve NG/mL cutoff :200 Not Available [facility] ([facility]) [address] [place], [address], 01/27/2025 12:07:19 01/24/20 25 01/27/2025 TOXAS SURE FLEX 20, UR phencyclidin e ia Negati ve NG/mL cutoff :25 Not Available [facility] ([facility]) [address] [place], [address], 01/27/2025 12:07:19 01/24/20 25 01/27/2025 TOXAS SURE FLEX 20, UR anticonvulsa nts +POSIT MICKY+ Not Available [facility] ([facility]) [address] [place], [address], 01/27/2025 12:07:19 01/24/20 25 01/27/2025 TOXAS SURE FLEX 20, UR gabapentin ia COMMEN T ug/mL cutoff :1.0 Furth er testi ng indic ated Not Available [facility] ([facility]) [address] [place], [address], 01/27/2025 12:07:19 01/24/20 25 01/27/2025 TOXAS SURE FLEX 20, UR pregabalin Not Detect ed Not Available [facility] ([facility]) [address] [place], [address], 01/27/2025 12:07:19 01/24/20 25 01/27/2025 TOXAS SURE FLEX 20, UR carisoprodol ia Negati ve NG/mL cutoff :100 Not Available [facility] ([facility]) [address] [place], [address], 01/27/2025 12:07:19 01/24/2001/27/2025 TOXAS SURE FLEX 20, UR kratom ia Negati ve NG/mL cutoff :5.0 Not Available [facility] ([facility]) [address] [place], [address], 01/27/2025 12:07:19 01/24/2001/24/2025 TSH+F REE T4 TSH 0.926 uIU/m L 0.450- 4.500 normal Not Available [facility] ([facility]) [address] [place], [address], 01/27/2025 12:07:20 01/24/2001/24/2025 TSH+F REE T4 T4,free(dire ct) 1.54 NG/dL 0.82-1 .77 normal Not Available [facility] ([facility]) [address] [place], [address], 01/27/2025 12:07:20 01/24/2001/24/2025 CBC WITH DIFFE RENTI AL/PL ATELE T WBC 6.6 x10e3 /uL 3.4-10 .8 normal Not Available [facility] ([facility]) [address] [place], [address], 01/27/2025 12:07:20 01/24/2001/24/2025 CBC WITH DIFFE RENTI AL/PL ATELE T RBC 4.52 x10e6 /uL 3.77-5 .28 normal Not Available [facility] ([facility]) [address] [place], [address], 01/27/2025 12:07:20 01/24/2001/24/2025 CBC WITH DIFFE RENTI AL/PL ATELE T hemoglobin 13.5 g/dL 11.1-1 5.9 normal Not Available [facility] ([facility]) [address] [place], [address], 01/27/2025 12:07:20 01/24/20 25 01/24/2025 CBC WITH DIFFE RENTI AL/PL ATELE T hematocrit 40.6 % 34.0-4 6.6 normal Not Available [facility] ([facility]) [address] [place], [address], 01/27/2025 12:07:20 01/24/2001/24/2025 CBC WITH DIFFE RENTI AL/PL ATELE T MCV 90 fL 79-97 normal Not Available [facility] ([facility]) [address] [place], [address], 01/27/2025 12:07:20 01/24/20 25 01/24/2025 CBC WITH DIFFE RENTI AL/PL ATELE T MCH 29.9 pg 26.6-3 3.0 normal Not Available [facility] ([facility]) [address] [place], [address], 01/27/2025 12:07:20 01/24/20 25 01/24/2025 CBC WITH DIFFE RENTI AL/PL ATELE T MCHC 33.3 g/dL 31.5-3 5.7 normal Not Available [facility] ([facility]) [address] [place], [address], 01/27/2025 12:07:20 01/24/20 25 01/24/2025 CBC WITH DIFFE RENTI AL/PL ATELE T RDW 13.1 % 11.7-1 5.4 Not Available [facility] ([facility]) [address] [place], [address], 01/27/2025 12:07:20 01/24/20 25 01/24/2025 CBC WITH DIFFE RENTI AL/PL ATELE T platelets 178 x10e3 /uL 150-45 0 normal Not Available [facility] ([facility]) [address] [facility] [place], [address], 01/27/2025 12:07:20 01/24/20 25 01/24/2025 CBC WITH DIFFE RENTI AL/PL ATELE T neutrophils 55 % not estab. normal Not Available [facility] ([facility]) [address] [facility], [place], [address], 01/27/2025 12:07:20 01/24/20 25 01/24/2025 CBC WITH DIFFE RENTI AL/PL ATELE T lymphs 30 % not estab. normal Not Available [facility] ([facility]) [address] [facility], [place], [address], 01/27/2025 12:07:20 01/24/20 25 01/24/2025 CBC WITH DIFFE RENTI AL/PL ATELE T monocytes 9 % not estab. normal Not Available [facility] ([facility]) [address] [facility], [place], [address], 01/27/2025 12:07:20 01/24/20 25 01/24/2025 CBC WITH DIFFE RENTI AL/PL ATELE T eos 5 % not estab. normal Not Available [facility] ([facility]) [address] [facility] [place], [address], 01/27/2025 12:07:20 01/24/20 25 01/24/2025 CBC WITH DIFFE RENTI AL/PL ATELE T basos 1 % not estab. normal Not Available [facility] ([facility]) [address] [facility], [place], [address], 01/27/2025 12:07:20 01/24/20 25 01/24/2025 CBC WITH DIFFE RENTI AL/PL ATELE T immature cells PROPULSION GENERATOR REPAIRER Not Available [facility] ([facility]) [address] [facility], [place], [address], 01/27/2025 12:07:20 01/24/20 25 01/24/2025 CBC WITH DIFFE RENTI AL/PL ATELE T neutrophils (absolute) 3.7 x10e3 /uL 1.4-7. 0 normal Not Available [facility] ([facility]) [address] [place], [address], 01/27/2025 12:07:20 01/24/20 25 01/24/2025 CBC WITH DIFFE RENTI AL/PL ATELE T lymphs (absolute) 2.0 x10e3 /uL 0.7-3. 1 normal Not Available [facility] ([facility]) [address] [facility], [place], [address], 01/27/2025 12:07:20 01/24/2001/24/2025 CBC WITH DIFFE RENTI AL/PL ATELE T monocytes(ab solute) 0.6 x10e3 /uL 0.1-0. 9 normal Not Available [facility] ([facility]) [address] [place], [address], 01/27/2025 12:07:20 01/24/20 25 01/24/2025 CBC WITH DIFFE RENTI AL/PL ATELE T eos (absolute) 0.3 x10e3 /uL 0.0-0. 4 normal Not Available [facility] ([facility]) [address] [place], [address], 01/27/2025 12:07:20 01/24/2001/24/2025 CBC WITH DIFFE RENTI AL/PL ATELE T baso (absolute) 0.0 x10e3 /uL 0.0-0. 2 normal Not Available [facility] ([facility]) [address] [place], [address], 01/27/2025 12:07:20 01/24/20 25 01/24/2025 CBC WITH DIFFE RENTI AL/PL ATELE T immature granulocytes 0 % not estab. Not Available [facility] ([facility]) [address] [place], [address], 01/27/2025 12:07:20 01/24/20 25 01/24/2025 CBC WITH DIFFE RENTI AL/PL ATELE T immature grans (abs) 0.0 x10e3 /uL 0.0-0. 1 Not Available [facility] ([facility]) [address] [facility], [place], [address], 01/27/2025 12:07:20 01/24/20 25 01/24/2025 CBC WITH DIFFE RENTI AL/PL ATELE T NRBC PROPULSION GENERATOR REPAIRER Not Available [facility] ([facility]) [address] [facility], [place], [address], 01/27/2025 12:07:20 01/24/20 25 01/24/2025 CBC WITH DIFFE RENTI AL/PL ATELE T hematology comments: PROPULSION GENERATOR REPAIRER Not Available [facility] ([facility]) [address] [facility], [place], [address], 01/27/2025 12:07:20 01/24/20 25 01/24/2025 COMP. METAB OLIC PANEL (14) glucose 92 mg/dL 70-99 normal Not Available [facility] ([facility]) [address] [facility], [place], [address], 01/27/2025 12:07:21 01/24/20 25 01/24/2025 COMP. METAB OLIC PANEL (14) BUN 14 mg/dL 8-27 normal Not Available [facility] ([facility]) [address] [facility], [place], [address], 01/27/2025 12:07:21 01/24/20 25 01/24/2025 COMP. METAB OLIC PANEL (14) creatinine 0.71 mg/dL 0.57-1 .00 normal Not Available [facility] ([facility]) [address] [facility], [place], [address], 01/27/2025 12:07:21 01/24/20 25 01/24/2025 COMP. METAB OLIC PANEL (14) eGFR 93 mL/mi n/1.7 3 >59 normal Not Available [facility] ([facility]) [address] [place], [address], 01/27/2025 12:07:21 01/24/20 25 01/24/2025 COMP. METAB OLIC PANEL (14) BUN/creatini ne ratio 20 12-28 normal Not Available [facility] ([facility]) [address] [facility], [place], [address], 01/27/2025 12:07:21 01/24/20 25 01/24/2025 COMP. METAB OLIC PANEL (14) sodium 141 mmol/ L 134-14 4 normal Not Available [facility] ([facility]) [address] [facility] [place], [address], 01/27/2025 12:07:21 01/24/20 25 01/24/2025 COMP. METAB OLIC PANEL (14) potassium 3.8 mmol/ L 3.5-5. 2 normal Not Available [facility] ([facility]) [address] [place], [address], 01/27/2025 12:07:21 01/24/20 25 01/24/2025 COMP. METAB OLIC PANEL (14) chloride 104 mmol/ L 96-106 normal Not Available [facility] ([facility]) [address] [place], [address], 01/27/2025 12:07:21 01/24/20 25 01/24/2025 COMP. METAB OLIC PANEL (14) carbon dioxide, total 21 mmol/ L 20-29 normal Not Available [facility] ([facility]) [address] [place], [address], 01/27/2025 12:07:21 01/24/20 25 01/24/2025 COMP. METAB OLIC PANEL (14) calcium 9.9 mg/dL 8.7-10 .3 normal Not Available [facility] ([facility]) [address] [facility] [place], [address], 01/27/2025 12:07:21 01/24/20 25 01/24/2025 COMP. METAB OLIC PANEL (14) protein, total 7.3 g/dL 6.0-8. 5 normal Not Available [facility] ([facility]) [address] [facility] [place], [address], 01/27/2025 12:07:21 01/24/20 25 01/24/2025 COMP. METAB OLIC PANEL (14) albumin 5.0 g/dL 3.9-4. 9 above high normal Not Available [facility] ([facility]) [address], [place], [address], 01/27/2025 12:07:21 01/24/20 25 01/24/2025 COMP. METAB OLIC PANEL (14) globulin, total 2.3 g/dL 1.5-4. 5 Not Available [facility] ([facility]) [address] [facility] [place], [address], 01/27/2025 12:07:21 01/24/20 25 01/24/2025 COMP. METAB OLIC PANEL (14) bilirubin, total 2.0 mg/dL 0.0-1. 2 above high normal Not Available [facility] ([facility]) [address] [facility] [place], [address], 01/27/2025 12:07:21 01/24/20 25 01/24/2025 COMP. METAB OLIC PANEL (14) alkaline phosphatase 101 IU/L 49-135 normal Ple ase note refer ence inter maricruz woodson e Not Available [facility] ([facility]) [address] [facility] [place], [address], 01/27/2025 12:07:21 01/24/20 25 01/24/2025 COMP. METAB OLIC PANEL (14) AST (SGOT) 25 IU/L 0-40 normal Not Available [facility] ([facility]) [address] [place], [address], 01/27/2025 12:07:21 01/24/20 25 01/24/2025 COMP. METAB OLIC PANEL (14) ALT (SGPT) 16 IU/L 0-32 normal Not Available [facility] ([facility]) [address] [place], [address], 01/27/2025 12:07:21 01/24/20 25 01/24/2025 LP cholesterol, total 149 mg/dL 100-19 9 normal Not Available [facility] ([facility]) [address] [place], [address], 01/27/2025 12:07:22 01/24/20 25 01/24/2025 LP triglyceride s 98 mg/dL 0-149 normal Not Available [facility] ([facility]) [address] [place], [address], 01/27/2025 12:07:22 01/24/20 25 01/24/2025 LP HDL cholesterol 59 mg/dL >39 normal Not Available [facility] ([facility]) [address] [place], [address], 01/27/2025 12:07:22 01/24/20 25 01/24/2025 LP VLDL cholesterol tripp 18 mg/dL 5-40 Not Available [facility] ([facility]) [address] [place], [address], 01/27/2025 12:07:22 01/24/20 25 01/24/2025 LP LDL chol calc ([facility]) 72 mg/dL 0-99 Not Available [facility] ([facility]) [address] [place], [address], 01/27/2025 12:07:22 01/24/20 01/24/2025 LP LDL calc comment: PROPULSION GENERATOR REPAIRER Not Available [facility] ([facility]) [address] [facility], [place], [address], 01/27/2025 12:07:22 01/24/2001/24/2025 HCV ANTIB LILIANA CASCA DE(PC R/GEN O) HCV Ab Non Reacti ve non reacti ve Not Available [facility] ([facility]) [address] [facility], [place], [address], 01/27/2025 12:07:22 01/24/2001/24/2025 HCV ANTIB LILIANA CASCA DE(PC R/GEN O) interpretati on: Commen t Not infec melania with HCV unles s early or acute infec tion is suspe cted (whic h may be delay ed in an immun ocomp romis ed indiv idual ), or other evide nce exist s to indic ate HCV infec tion. Not Available [facility] ([facility]) [address] [facility], [place], [address], 01/27/2025 12:07:22 01/24/2001/27/2025 GABAP ENTIN , MS, UR RFX anticonvulsa nts +POSIT MICKY+ Not Available [facility] ([facility]) [address] [facility], [place], [address], 01/27/2025 12:07:23 01/24/2001/27/2025 GABAP ENTIN , MS, UR RFX gabapentin PRESEN T Not Available [facility] ([facility]) [address] [place], [address], 01/27/2025 12:07:23 01/24/2001/24/2025 HIV AB/P2 4 AG WITH REFLE X HIV Ab/P24 Ag screen Non Reacti ve non reacti ve HIV-1 /HIV- 2 antib odies and HIV-1 p24 antig en were NOT detec melania. There is no labor atory evide nce of HIV infec tion. HIV Negat micky Not Available [facility] ([facility]) [address], [place], [address], 01/27/2025 12:07:23 01/01/20 25 XR, chest , 2 view No observ ation record ed. [address], [place], [address], 01/02/2025 12:19:33 Result Notes None recorded. 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 13:20:52 Rib pain 281043876 Completed 202310/26/2024 Shea Self NP [address] [place] [address], [address] 8, [employer] 13:21:08 Hypothyroid ism 89064676 Active 2023 Shea Self NP [address] [place] [address], [address] 8, [employer] 13:21:04 Hyperlipide lee 56791802 Active 2024 Shea Self NP [address] [place] [address], [address] 8, [employer] 13:20:57 Fatigue 26101944 Active 2024 Shea Self NP [address] [place] [address], 110[address] 8, [employer] 13:20:53 Vitamin D deficiency 00286182 Active 2024 Shea Self NP [address] [place] [address], [address] 8, [employer] 5 13:21:17 Vitamin B deficiency 75551020 Active 2024 Shea Self NP [address] [place] [address], [address] 8, [employer] 13:21:14 Hyperglycem ia 23585345 Active 2024 Shea Self, PROPULSION GENERATOR REPAIRER [address] [place] [address], [address] 8, [employer] 13:20:55 Subacute cough Completed 202410/26/2024 Shea Self NP [address] [place] [address], 95[address]901 8, [employer] 13:21:10 Bronchitis 46307902 Completed 202410/26/2024 Shea Self NP [address] [place] [address], 48[address] 8, [employer] 13:20:50 Acute bronchitis 31411089 Completed 202410/26/2024 Shea Self NP [address] [place] [address], [address] 8, [employer] 13:20:48 Mild intermitten t asthma 797944923 Active 2024 Shea Self NP [address] [place] [address], 6[address] 8, [employer] 10:13:59 Allergic reaction to food 760096504 Active 2024 Shea Self NP [address] [place] [address], [address] 8, [employer] 5 10:13:56 Body mass index 25-29 - overweight 568862389 Active 2024 Shea Self NP [address] [place] [address], [address] 8, [employer] 5 10:13:53 Essential hypertensio n 49903227 Active 2024 Shea Self NP [address] [place] [address], 98[address] 8, [employer] 5 10:13:51 Exacerbatio n of moderate persistent asthma 659649275 Completed 202401/23/2025 Shea Self NP [address] [place], [address], [employer] 5 10:13:48 Exacerbatio n of intermitten t asthma 355185176 Completed 202401/23/2025 Shea eSlf NP [address] [place], [address], [employer] 5 10:13:49 Gastroesoph ageal reflux disease without esophagitis 636114920 Active 2024 Shea Self NP [address] [place] [address], [address] 8, [employer] 5 10:17:46 Problem Notes None recorded. Procedures Surgical History Date Name Laterality Status Provider Name and Address Organization Details Recorded Time 01/11/20 24 Most Recent Mammogram completed [employer] 01/19/2024 08:08:01 Knee Replacement completed [employer] 10/26/2022 14:02:47 Hip Replacement completed [employer]. 10/26/2022 14:02:56 tonsilectomy/adeno ids completed [employer]. 10/26/2022 14:03:05 abdominoplasty completed [employer]. 10/26/2022 14:03:13 Imaging Results None recorded. Procedure Notes None recorded. Medical Equipment None Reported. Allergies No known drug allergies Medications Name Sig Start Date Stop Date Status Note LastModified by Organization Details LastModified Time Prescriptio n - New active Not Available Not Available Not Available atorvastati n 20 mg tablet TAKE 1 TABLET BY MOUTH EVERY DAY active Not Available Not Available No t Available ipratropium 0.5 mg-albutero l 3 mg (2.5 mg base)/3 mL nebulizatio n soln Inhale 3 mL by nebulizat ion route. 2024 active Not Available Not Available Not Avai lable albuterol sulfate 2.5 mg/3 mL (0.083 %) solution for nebulizatio n INHALE 3ml BY MOUTH EVERY 6 HOURS via nebulizer as needed FOR wheezing, DO not USE WITHIN 4 hours of THE ihaler active Not Available Not Available No t Available cetirizine 10 mg tablet TAKE 1 TABLET BY MOUTH DAILY NEEDED active Not Available Not Available No t Available azithromyci n 250 mg tablet TAKE 2 TABLETS BY MOUTH ON DAY 1, THEN TAKE 1 TABLET DAILY ON DAYS 2-5 10/26 completed Not Available Not Available Not Available benzonatate 200 mg capsule TAKE ONE CAPSULE BY MOUTH THREE TIMES DAILY NEEDED 10/26 completed Not Available Not Available Not Available prednisone 20 mg tablet TAKE TWO TABLETS BY MOUTH EVERY DAY 10/26 completed Not Available Not Available Not Available levothyroxi ne 100 mcg tablet TAKE 1 TABLET BY MOUTH EVERY DAY active Not Available Not Available No t Available famotidine 20 mg tablet Take 1 tablet twice a day by oral route for 90 days. 2024 active Not Available Not Available Not Avai lable amlodipine 10 mg tablet TAKE 1 TABLET BY MOUTH EVERY DAY active Not Available Not Available No t Available doxycycline monohydrate 100 mg capsule TAKE 1 CAPSULE BY MOUTH EVERY 12 HOURS FOR 10 TO 14 DAYS 01/23 completed Not Available Not Available Not Available levothyroxi ne 125 mcg tablet TAKE ONE TABLET BY MOUTH ONCE DAILY 02/22 completed Not Available Not Available Not Available gabapentin 300 mg capsule TAKE ONE CAPSULE BY MOUTH THREE TIMES DAILY active Not Available Not Available No t Available omeprazole 20 mg capsule,del ayed release TAKE 1 CAPSULE BY MOUTH EVERY DAY NEEDED active Not Available Not Available No t Available epinephrine 0.3 mg/0.3 mL injection, auto-inject or Inject 1 pen injector intramusc ularly into the outer thigh as directed when needed then call 911 active Not Available Not Available No t Available methylpredn isolone 4 mg tablets in a dose pack take by MOUTH as directed ON package FOR 6 DAYS 01/23 completed Not Available Not Available Not Available albuterol sulfate HFA 90 mcg/actuati on aerosol inhaler INHALE 2 puffs by MOUTH every 4 hours active Not Available Not Available No t Available losartan 50 mg-hydrochl orothiazide 12.5 mg tablet Take 1 tablet every day by oral route. 2024 active Not Available Not Available Not Avai lable colchicine 0.6 mg tablet TAKE ONE TABLET BY MOUTH EVERY DAY NEEDED FOR FOR GOUT attack 10/17 completed Not Available Not Available Not Available sulindac 200 mg tablet TAKE ONE TABLET BY MOUTH TWICE DAILY with a MEAL active Not Available Not Available No t Available levothyroxi ne 112 mcg tablet TAKE ONE TABLET BY MOUTH ONCE DAILY 03/23 completed Not Available Not Available Not Available colchicine 01/23 completed Not Available Not Available Not Available Mezlin active Not Available Not Availa ble Not Available Calcium 600 with Vitamin D3 Take once a day active Not Available Not Available No t Available olopatadine 0.2 % eye drops INSTILL 1 drop into each IN THE AFFECTED EYE DAILY NEEDED active Not Available Not Available No t Available BinaxNOW COVID-19 Ag Self Test kit TEST DIRECTED TODAY 10/26 completed Not Available Not Available Not Available Vitals Date Recorded Body height Body mass index (BMI) Body weight Heart rate Oxygen saturation Oxygen saturation in Arterial blood by Pulse oximetry Systolic And Diastolic Systolic And Diastolic Provider Name and Address Organization Details Last Updated DateTime 5 162.56 cm 28.3 kg/m2 02568.7 4 g 73 /min 97 % 97 % 155/76 mm[Hg] 136/78 mm[Hg] [employer] 5 09:02:12 Date Recorded Body height Body mass index (BMI) Body weight Body temperature Heart rate Oxygen saturation Oxygen saturation in Arterial blood by Pulse oximetry Systolic And Diastolic Provider Name and Address Organization Details Last Updated DateTime 5 162.56 cm 27.1 kg/m2 65431.5 9 g 98.4 [degF] 69 /min 95 % 95 % 138/85 mm[Hg] [employer] 5 08:37:00 Date Recorded Body height Body mass index (BMI) Body weight Heart rate Oxygen saturation Oxygen saturation in Arterial blood by Pulse oximetry Systolic And Diastolic Provider Name and Address Organization Details Last Updated DateTime 5 162.56 cm 27.5 kg/m2 84260.7 8 g 63 /min 98 % 98 % 123/71 mm[Hg] Juana Moran [employer] 5 15:04:08 Date Recorded Body height Body mass index (BMI) Body weight Body temperature Heart rate Oxygen saturation Oxygen saturation in Arterial blood by Pulse oximetry Systolic And Diastolic Systolic And Diastolic Provider Name and Address Organization Details Last Updated DateTime 5 162.56 cm 29.1 kg/m2 89087.5 5 g 98.1 [degF] 81 /min 93 % 93 % 143/70 mm[Hg] 125/67 mm[Hg] AISHA ZORAIDAELIZABETH DA [employer] 5 10:20:13 Date Recorded Body height Body mass index (BMI) Body weight Heart rate Oxygen saturation Oxygen saturation in Arterial blood by Pulse oximetry Body temperature Systolic And Diastolic Provider Name and Address Organization Details Last Updated DateTime 5 162.56 cm 29.4 kg/m2 80302.3 g 65 /min 97 % 97 % 98.4 [degF] 134/74 mm[Hg] Juana Moran [employer] 5 08:43:20 Social History Question Answer Notes LastModified by Organizat ion Details LastModified Time Tobacco Smoking Status Never Smoker Xiao thornton [employer]. 10/26/2022 14:02:16 Do You Have An Advance Directive? No [email or web address] Information n ot available 08/18/2023 Is Your Home Air Conditioned? Yes Information not available 10/26/2022 Are You Blind Or Do You Have Difficulty Seeing? No Information n ot available 10/26/2022 What Is Your Level Of Caffeine Consumption? Moderate Information not available 10/26/2022 Are You A Caregiver? No Information not available 10/26/2022 In The 14 Days Before Symptom Onset, Have You Had Close Contact With A Laboratory-confirm ed COVID-19 While That Case Was Ill? No Information n ot available 01/28/2023 In The 14 Days Before Symptom Onset, Have You Had Close Contact With A Person Who Is Under Investigation For COVID-19 While That Person Was Ill? No Information not available 01/28/2023 Have You Been To An Area Known To Be High Risk For COVID-19? No Information not available 10/26/2022 Are You Deaf Or Do You Have Serious Difficulty Hearing? No Information not available 10/26/2022 What Type Of Diet Are You Following? SPECIFIC Information n ot available 10/26/2022 Have There Been Any Changes To Your Family Or Social Situation? No Information no t available 10/26/2022 Are There Any Guns Present In Your Home? Yes Information not available 01/23/2025 Which Of Your Hands Is Dominant? Right Information n ot available 01/23/2025 Do You Engage In Moderate/heavy Exercise (e.g. Brisk Walk, Jogging, Strength Training, Etc)? No Information not available 01/23/2025 Are You Following A Low Salt Diet? No Information not available 01/23/2025 Do You Have A Medical Power Of Tie Cutter? No [email or web address] Information not available 08/18/2023 What Was The Date Of Your Most Recent Tobacco Screening? 01/23/2025 Information not available 01/23/2025 Do You Have Any Pets? Yes Information not available 01/23/2025 What Is Your Relationship Status? Information not available 10/26/2022 Do You Use Your Seat Belt Or Car Seat Routinely? Yes Information not available 10/26/2022 Do You Have Smoke And Carbon Monoxide Detectors In Your Home? Yes Information not available 10/26/2022 Are You Passively Exposed To Smoke? Yes Information no t available 01/23/2025 Are There Any Smokers In Your House? Yes Information not available 01/23/2025 Have You Recently Traveled Abroad? No Information not available 10/26/2022 Do You Have Difficulty Walking Or Climbing Stairs? No Information not available 10/26/2022 Are You Currently In School? No [email or web address] Information not available 08/18/2023 Do You Have Any Dietary Restrictions? Yes Meats Information not available 10/26/2022 Sex: Female Functional Status Question Answer Note LastModified by Organizat ion Details LastModified Time Do you use any illicit or recreational drugs? No Information not available 10/26/2022 Do you or have you ever used any other forms of tobacco or nicotine? No [email or web address] Information not available 08/18/2023 What is your level of alcohol consumption? None Information not available 10/26/2022 Are you currently employed? No Retired from [employer] Information not available 08/18/2023 Do you have transportation difficulties? No Information not available 10/26/2022 Are you able to walk independently without assistance or assistive devices? YESWOREST Information not available 10/26/2022 Do you have difficulty doing errands alone? No Information not available 10/26/2022 Are you able to care for yourself independently? Yes Information not available 10/26/2022 Do you have difficulty dressing, bathing, grooming, or toileting? No Information not available 10/26/2022 Mental Status Question Answer Note LastModified by Organizat ion Details LastModified Time Do you feel stressed (tense, restless, nervous, or anxious, or unable to sleep at night)? [id number] Information not available 01/23/2025 Do you have difficulty concentrating, remembering or making decisions? No [email or web address] Information no t available 10/26/2022 Family History Relationship Description Onset Age of this Age Resolved Age Notes LastModified by Organization Details LastModified Time Mother Diabetes mellitus Not available 10/26 14:00:57 Sister Diabetes mellitus Not available 10/26 14:00:57 Brother Diabetes mellitus Not available 10/26 14:00:57 Medical History Condition Response Hospitalizations N ADD/ADHD N Allergies/Hayfever N Acid Reflux (GERD) N Emergency room visit since last appointm ent. N Fibromyalgia N Abuse/Domestic Violence N GI Problems N Acne N Gynecological History Statement/Question Response Date of Last Pap Smear Most Recent Mammogram 01/11/2024 Obstetrics History GPAL:G 0 P 0 0 0 0 Immunizations Vaccine Type Date Status Note Provider Name and Address Organization Details Recorded Time zoster recombinant 024 cancelled patient objection Brenda Mejia, [employer] [place], [address], [employer] 10/21/2023 13:11:35 pneumococcal polysaccharide PPV23 024 cancelled patient objection Brenda Mjeia, [employer] [address] [address] [place], [address], [employer] 10/21/2023 13:11:35 zoster recombinant 025 completed Ena Wooten null, [employer] 10/26/2024 16:40:12 Pneumococcal conjugate PCV15, polysaccharide [id number] conjugate, adjuvant, PF 025 completed Ena Wooten null, [employer] 10/26/2024 16:40:12 zoster recombinant 025 completed Sharlene Ley null, [employer] 01/23/2025 12:53:57 COVID-19, mRNA, LNP-S, PF, 100 mcg/0.5mL dose or 50 mcg/0.25mL dose 022 completed [place] null, [employer] 01/28/2023 08:17:56 COVID-19, mRNA, LNP-S, PF, 100 mcg/0.5mL dose or 50 mcg/0.25mL dose 021 completed [place] null, [employer] 01/28/2023 08:17:56 COVID-19, mRNA, LNP-S, PF, 100 mcg/0.5mL dose or 50 mcg/0.25mL dose 021 completed [place] null, [employer] 01/28/2023 08:17:56 Tdap 019 completed [place] null, [employer] 01/28/2023 08:17:56 Influenza, recombinant, trivalent, PF 019 completed [place] null, [facility] [email or web address] [employer] 01/28/2023 08:17:56 COVID-19, mRNA, LNP-S, PF, 50 mcg/0.5 mL 021 completed Not Available [facility] 01/23/2025 08:26:17 COVID-19, mRNA, LNP-S, PF, 50 mcg/0.5 mL 021 completed Juana thornton, [facility] [email or web address] 10/17/2024 08:38:53 Past Encounters Encounter ID Performer Location Encounter Start Date Encounter Closed Date Diagnosis/Indication Diagnosis SNOMED-CT Code Diagnosis ICD10 Code Diagnosis IMO Codes Diagnosis Note [id number] [place] [address] 10/26/2022 13:48:56 10/26/2022 15:13:13 Essential hypertension 44822421 I10 Hypothyroidism 48304891 E03.9 Vitamin D deficiency 347 25770 E55.9 Hyperlipidemia 47966346 E78.5 Body mass index 30+ - obesity 916305109 Z68.32 Screening mammography 24 409999 Z12.31 [id number] [place] [address] 01/28/2023 08:00:38 01/28/2023 08:45:35 Fatigue 13283935 R53.83 Rheumatoid arthritis 698 18587 M06.9 Allergy to hehrnhhbs-izvrb-4,3 galactose 628372888 Z88.8 Body mass index 30+ - obesity 949249198 Z68.32 [id number] Brenda Mejia [place] [address] 07/28/2023 10:12:04 07/28/2023 11:06:28 Fatigue 59479886 R53.83 Hyperlipidemia 61292943 E78.5 Vitamin D deficiency 347 40879 E55.9 Vitamin B deficiency 479 56007 E53.9 Hemolytic anemia 4012994 9 D59.4 Essential hypertension 44252861 I10 Hypothyroidism 65837757 E03.9 Gastroesop hageal reflux disease without esophagitis 987536708 K21.9 Body mass index 30+ - obesity 782564322 Z68.32 [id number] LUIS ANGEL MITCHELL [place] [phone] 08/18/2023 10:52:23 08/18/2023 11:48:14 Rib pain 830500296 R07.81 [id number] [place] [address] 10/21/2023 08:13:46 10/21/2023 09:00:16 Adult health examination 375331666 Z00.00 Colon canc er screening declined 5023619290 9109 Z53.20 Osteoporos is screening declined 2077462746 14687 Z53.20 Vaccine de clined by patient 2754408354 02 Z28.20 Body mass index 30+ - obesity 254730345 Z68.32 Gastroesop hageal reflux disease without esophagitis 745234244 K21.9 Hypothyroidism 80688216 E03.9 Essential hypertension 92489730 I10 [id number] [place] [address] 01/19/2024 08:01:49 01/19/2024 09:03:06 Hypothyroidism 15889613 E03.9 Essential hypertension 77748155 I10 Gastroesop hageal reflux disease without esophagitis 566919638 K21.9 Cough 68206321 R05.9 Ganglion c yst of right wrist 2143200499 83283 M67.431 Body mass index 30+ - obesity 967860976 Z68.32 [id number] Brenda Mejia [place] [phone] 03/22/2024 12:42:34 03/22/2024 14:00:24 Hypothyroidism 39931266 E03.9 Essential hypertension 27559539 I10 Body mass index 25-29 - overweight 714666503 Z68.28 [id number] Brendajonathan Mejia [place] [phone] 07/23/2024 08:54:44 07/23/2024 09:25:01 Hyperlipidemia 89037603 E78.5 Fatigue 90363964 R53.83 Vitamin D deficiency 347 43971 E55.9 Vitamin B deficiency 479 04261 E53.9 Hyperglycemia 20697729 R 73.9 Essential hypertension 26013657 I10 Gastroesop hageal reflux disease without esophagitis 974228645 K21.9 Body mass index 25-29 - overweight 112274960 Z68.28 [id number] Shea Self NP [place] [address] 10/17/2024 08:23:20 10/17/2024 08:51:37 Subacute cough 4123701584 07407386 R05.2 4283333 Acute bronchitis 4634796 2 J20.9 [id number] Shea Self NP [place] [address] 10/26/2024 14:41:41 10/26/2024 16:30:07 Hyperlipidemia 57580878 E78.5 Hypothyroidism 54701506 E03.9 Vitamin D deficiency 347 06525 E55.9 Vitamin B deficiency 479 88600 E53.9 Essential hypertension 15107201 I10 Mild inter mittent asthma 522260004 J45.20 3577657114 Diagnosed childhood Active immunization 3387 9002 Z23 6414434 Body mass index 25-29 - overweight 780256511 E66.3 694686 [id number] [place] [address] 12/31/2024 10:13:05 12/31/2024 11:33:30 Hypothyroidism 15020327 E03.9 Essential hypertension 29193915 I10 Mild inter mittent asthma 973045854 J45.20 Exacerbati on of intermittent asthma 935259591 J45.21 [id number] [place] [address] 01/23/2025 08:22:08 01/23/2025 11:46:36 Screening for cardiovascular system disease 237551570 Z13.6 Screening mammography 24 931981 Z12.31 Screening for malignant neoplasm of colon 307406402 Z12.11 Hypothyroidism 63017387 E03.9 Viral scre ening status 478270992 Z11.59 830713 HIV screening 381475184 Z11.4 81387251 Mild inter mittent asthma 266939344 J45.20 9036191151 Immunization due 8690738 08 Z23 4547296 Gastroesop hageal reflux disease without esophagitis 422510472 K21.9 920159 Therapeuti c drug monitoring assay 97330038 Z51.81 757819 General ex amination of patient 625539150 Z00.00 80303625 Essential hypertension 75368374 I10 Hyperlipidemia 52919143 E78.5 Health Concerns Section Related Observation LastModified by Organization Detai ls LastModified Time None Recorded Concern Status LastModified by Organization Details LastModified Time None Recorded Advance Directives Directive N: Payers Insurance Date Sequence Insurance Name Policy Number Policy Mlies Covered Member ID Miles Member ID Guarantor Name 01/20/2025 [place] - [facility] Kayleen Sheason [id number] Kayleen Sheason 07/28/2023 1 [employer] - [employer]ICECARE (PPO) Kayleen Sheason [id number] Kayleen Sheason 10/26/2022 1 *SELF PAY* Be katya Sheason 10/21/2023 [employer] (MEDICARE REPLACEMENT/AD VANTAGE - PPO) Kayleenruth Sheason [id number] Kayleen Sheason 01/30/2025 1 [place] [employer] [place]MEDICARE REPLACEMENT HMO) [id number] Kayleen Sheason [id number] Kayleen Sheason 07/28/2023 [employer] (MEDICARE REPLACEMENT/AD VANTAGE - PPO) Kayleen Jon [id number] Kayleenruth Sheason Notes Date Note Type Note Provider Name and Address Organization Details Recorded Time 07/23/2024 text/html pt here today for medication refills. pt states shes doing well on current medication regime and has no new complaints today. ordered routine labs today. pt also needs labs for RA doc Brenda Mejia, [address] [place], [address], [employer] 07/23/2024 09:25:09 10/17/2024 text/html Patient presents for wheezing and cough x a month now. States it started when she planted some rogers in the end of August and she has had some congestion and cough since then. States she had some sinus pressure but it has resolved. She mostly has noticed increased frequency of use of her inhaler d/t wheezing and cough. NO fever. Shea Self NP [address] [place], [address], [employer] 10/17/2024 12:58:17 10/26/2024 text/html Patient presents for follow up on HTN, HLD, thyroid.Sees rheumatology. She is doing well overall. Lives with .No concerns. Shea Self NP [address] [place], [address], [employer] 11/02/2024 07:35:41 12/31/2024 text/html Patient presents for asthma flare. States she cannot get a deep breath. She has been using her inhaler several times per day and it is not lasting the whole day. She is wheezing. No fever or chills. Shea Self NP [address] [place], [address], [employer] 01/02/2025 18:18:26 01/23/2025 text/html Medicare Annual Wellness VisitReported by PatientSocial/Behavi oral HistoryFor physical activity, patient reportsdoes not exercise on a regular basis(active, works on farm and cleans frequently, rarely sedentary). For diet and nutrition, patient reportshealthy diet. For fracture risk, patient reportsno history of fractures(sees rheumatology, they are ordering dexa at next visit (apr)).Mental Status:For depression risk, patient reportsnever feels sad, empty, or tearful,no loss of interest in activities,no feelings of worthlessness or guilt, andno thoughts of suicide. For orientation, patient reportsno disorientation to time,no disorientation to date, andno disorientation to place. For speech/motor difficulties, patient reportsno speech difficulties.Functio nal AbilityFor hearing, patient reportsno loss of hearing. For vision, patient reportsno vision problems. For activities of daily living, patient reportsable to bathe with limited or no assistance,able to contol urination and bowels,able to dress with limited or no assistance,able to feed self with limited or no assistance,able to get out of chair or bed with limited or no assistance,able to groom with limited or no assistance, andable to toilet with limited or no assistance. For instrumental activities of daily living, patient reportsable to do house work with limited or no assistance,able to grocery shop with limited or no assistance,able to manage medications with limited or no assistance,able to manage money with limited or no assistance,able to prepare meals with limited or no assistance, andable to use the phone with limited or no assistance. For falls risk assessment, patient reportsno fall in the past year. For home safety, patient reportsno unsafe marky hazzards,use of seatbelts, andno vision or hearing loss while driving. Presents for annual wellness.Seeing an podiatrist - Dr. Jorge Alves in [place] - now due to alpha gal - sees them on 01/28, will test for environmental allergies, r/t eye swelling and facial swelling. Has also had episodes of hives in the past month. Will have additional testing to check alpha gal in February. Customer Experience Analyst thinks alpha gal may be worsening.Breathing has been better, has only used nebulizer 1-2x since prescribed. Breathing back to baseline since treated for exacerbation. Customer Experience Analyst [facility].Last colonoscopy was ~ 10 years ago, does not remember provider or where it was done at - somewhere in [place] - results were normal. No immediate FH of colon ca.Went to ER at [facility] ~ 5 weeks ago, was not admitted, went to be evaluated for throat discomfort, radiated to ears, was scared could be a heart attack, this was r/o, was told could be throat swelling or acid reflux.Declines flu vaccine.Mammogram to be scheduled. Shea Self NP [address] [place], [address], [place] [facility] [email or web address] 01/28/2025 17:14:35 OBGyn Episode No OBEpisode recorded.
--- OUTSIDE RECORDS SUMMARY | 2025-02-06 07:58 | XMS_ITS | Encounter Summary ---
Author Organization [facility] Address [address] [place] [id number] Care Team Providers Care Bottle Capping Machine Operator Name Role Phone rBenda Mejia Primary Care Provider + [phone] Reason for Visit * Reason Comments Med Refill Encounter Details Date Type Department Care Team (Late st Contact Info) Description 05/04/2023 Refill [facility] [address] [place] [address] Jaret Miramontes MD [address] [place] [address] Essential hypertension; Hypothyroidism, unspecified type; [...] say that she would tripp back to [facility] * Telephone Encounter - Sneha Anaya RegSched Rep - 05/05/2023 9:14 AM EST LEFT VM documented in this encounter Plan of Treatment Upcoming Encounters Date Type Department Care Team (Late st Contact Info) Description 04/29/2025 8:30 AM EST Appointment [facility] [address] [address] 04/29/2025 9:00 AM EST Office Visit [facility] [address] [address] Anshu Maloney APRN [address] [id number] documented as of this encounter Visit Diagnoses Diagnosis Essential hypertension Unspecified essential hypertension Hypothyroidism, unspecified type Hypercholesterolemia Pure hypercholesterolemia documented in this encounter Care Teams Bottle Capping Machine Operator Relationship Specialty Start Date End Date Brenda Mejia [address] [place] [address] PCP - General Nurse Practitioner 01/02/24 documented as of this encounter
--- OUTSIDE RECORDS SUMMARY | 2025-02-06 07:58 | XMS_ITS | Clinical Summary ---
Author Organization [facility] Address [address] [place] [address] Care Team Providers Care Jewelry Internship Name Role Phone Brenda Mejia Primary Care Provider [phone] Allergies Active Allergy Reactions Criticality Noted Date Comments Beef (Bovine) Protein Other (See Comments) 09/06 Alphagal Lisinopril Other (See Comments) 01/22/2022 Lips swelling Other Provider Review Needed 12/27/2023 SERUM BASE NO.214: HORSE SERUM Pork-Derived Products Other (See Comments) 09/06 Alphagal Medications albuterol sulfate HFA 108 (90 Base) MCG/ACT inhaler 2 Active calcium carbonate (OS-MARCIA) 1250 (500 Ca) MG tablet Take by mouth. Active famotidine (PEPCID) 20 MG tablet 2 Active magnesium oxide (MAG-OX) 400 MG tablet Take 1 tablet by mouth Daily. Active levothyroxine (SYNTHROID, LEVOTHROID) 125 MCG tabletIndications:H ypothyroidism, unspecified type Take 1 tablet by mouth Daily. 90 tablet 1 3 Active atorvastatin (LIPITOR) 20 MG tabletIndications:H ypercholesterolemia Take 1 tablet by mouth Daily. 90 tablet 1 3 Active losartan-hydrochlor othiazide (HYZAAR) 50-12.5 MG per tabletIndications:E ssential hypertension Take 1 tablet by mouth Daily. 90 tablet 1 3 Active amLODIPine (NORVASC) 10 MG tabletIndications:E ssential hypertension Take 1 tablet by mouth Daily. 90 tablet 1 3 Active Cholecalciferol 25 MCG (1000 UT) tablet Take 1 tablet by mouth Daily. Active EPINEPHrine (EPIPEN) 0.3 MG/0.3ML solution auto-injector injection INJECT 1 PEN INTO THE MUSCLE OF THE OUTER THIGH DIRECTED NEEDED AND CALL 911 Active colchicine 0.6 MG tabletIndications:A cute idiopathic gout involving toe of right foot Take 1 tablet by mouth Daily. Prn gout attack 30 tablet 2 4 Active benzonatate (TESSALON) 200 MG capsule Take 1 capsule by mouth 3 times a day. 5 Active gabapentin (NEURONTIN) 300 MG capsuleIndications: Primary osteoarthritis involving multiple joints Take 1 capsule by mouth 3 (Three) Times a Day. 270 capsule 1 5 Active sulindac (CLINORIL) 200 MG tabletIndications:P rimary osteoarthritis involving multiple joints TAKE ONE TABLET BY MOUTH TWICE DAILY with a MEAL 60 tablet 3 5 Active Active Problems Problem Noted Date Diagnosed Date [...] CBD and Biofreeze. Comfort cool splints from [employer]. Compression gloves. Her shoulders are her biggest [...] CBD and Biofreeze. Comfort cool splints from [employer]. Compression gloves. Currently taking gabapentin bid. Could [...] Type Department Care Team Description 12/10/2024 Refill [facility] R[facility] [address] [place] [address] Anshu Maloney APRN Primary osteoarthritis involving multiple joints from Last 3 Months Immunizations Immunization Administration [...] Info) Description 04/29/2025 8:30 AM EST Appointment [facility] RHEUMAT[facility]Y DEXA [address] [address] 04/29/2025 9:00 AM EST Office Visit [facility] [address] [phone] Anshu Maloney APRN Winifred [place] [id number] Health Maintenance Due Date Last Done Comments DXA SCAN 1957 COLOGUARD 2002 COLON CANCER SCREENING 5 YEA R SIGMOIDOSCOPY 2002 COLONOSCOPY 2002 COLORECTAL CANCER SCREENING 2002 CT COLONOGRAPHY 2002 FECAL OCCULT BLOOD TEST 2002 FIT Testing (1 year) 2002 ANNUAL WELLNESS VISIT 01/22/2022 HEPATITIS C SCREENING 01/22/2022 LIPID PANEL 01/22/2023 01/22/2022 MAMMOGRAM 11/03/2024 11/03/2022 INFLUENZA VACCINE 12/07/2024 05/24/2018 ZOSTER VACCINE (2 of 2) 12/21/2024 10/26/2024 COVID-19 Vaccine (6 - 2024-2 6 season) 2025 06/09/2021, 08/27/2020, 08/07/2020, Additional history exists Pneumococcal Vaccine 50+ (2 of 2 - PPSV23) 10/26/2025 10/26/2024 TDAP/TD VACCINES (2 - Td or Tdap) 05/24/2028 019 Procedures Procedure Name Priority Date/Time Associated Diagnosis Comments SCANNED - LABS 01/23/2025 SCANNED - MAMMO 11/03/2022 LIPID PANEL Routine 01/22/2022 9:31 AM EDT Hypercholesterolemia from Last 3 Months or Most Recently Relevant to Health Maintenance Results * LABS SCANNED (01/23/2025) Shea Self APRN LAB BLOOD ORDERABLES Final R esult * SCANNED - MAMMO (11/03/2022) Anatomical Region Laterality Modality Other Brenda Mejia CHART REVIEW TABS Final R [...] - 01/23/2022 3:07 AM EDT Performed at: [address] [place] [id number] Prepress Stripper: Harris Jones MD, Phone: [phone] Patient Fasting: Y us Jaret Miramontes MD LAB BLOOD ORDERABLES Fin al Result [facility] (AMBULATORY) [address] [place] [address], [place] [phone] [facility] [address] [place] [address], [place] [phone] from Last 3 Months or Most Recently Relevant to Health Maintenance [id number] Member Subscriber Plan / Payer (Ef fective 2023-Present) Name:Kayleen Webb Relation to Subscriber:Self Name:Kayleen Webb Payer ID:[id number] (NAIC) Group ID:[id number] Type:Medicare Replacement Address: [address] MEDICARE ADVANTAGE HMO Care Teams Jewelry Internship Relationship Specialty Start Date End [place] [address] PCP - General Nurse Practitioner 01/02/24
--- OUTSIDE RECORDS SUMMARY | 2025-02-06 07:58 | XMS_ITS | Continuity of Care Document ---
[facility] Organization [facility] Address [address] [place] [phone] Assessment Encounter Date Assessment Date Assessment LastModified by Organization Details LastModified Time 12/31/2024 12/31/2024 Treating for asthma exacerbation. Chest xr to r/o pneumonia given duration of symptoms. Follow up if no improvement or worsening and as planned. To ER with worsening shortness of breath. Nebulizer for PRN use. If not improving or another flare, may consider PFT's. Not available 01/02/2025 18:17:50 Plan of Treatment Reminders Order Date Submit Date Provider Last Modified By Organization Details Last Modified Time Details Appointments FOLLOW UP 30 2024 09:00A Shea Bennett Not available Not available Not available Lab None recorded. Referral None recorded. Procedures None recorded. Surgeries None recorded. Imaging XR, chest, 2 view 2024 025 [facility], [address] [place] [address], [phone], 12/31/2024 14:39:07 Medication Orders Medrol (Kishore) 4 mg tablets in a dose pack 2024 025 [facility], [address] [place] [address], [id number], 01/23/2025 11:15:52 ipratropi um 0.5 mg-albute rol 3 mg (2.5 mg base)/3 mL nebulizat ion soln 2024 025 Not available 01/01/2025 11:46:54 albuterol sulfate 2.5 mg/3 mL (0.083 %) solution for nebulizat ion 2024 [facility], [address] [place] [address], [id number], 12/31/2024 11:08:58 losartan 50 mg-hydroc hlorothia zide 12.5 mg tablet 2024 025 [facility], [address] [place] [address], [address], 12/31/2024 11:08:58 albuterol sulfate HFA 90 mcg/actua tion aerosol inhaler 2024 [facility], [address] [place] [address], [address], 12/31/2024 11:08:57 levothyro xine 100 mcg tablet 2024 025 [facility], [address] [place] [address], [address], 12/31/2024 11:08:58 Patient TargetsNo targets recorded. Patient InstructionsNo instructions recorded. Reason for Referral None Reported. Results Created Date Observation Date Name Description Value Unit Range Abnormal Flag Note LastModifiedBy Organization Detail LastModifiedTime 01/01/20 XR, chest , 2 view No observ ation record ed. [address], [phone], 01/02/2025 12:19:33 Result Notes None recorded. 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 13:20:52 Rib pain 159333929 Completed 202310/26/2024 Shea Aramis, TOUR OPERATOR [address] [place] [address], [phone], [place] [employer] 5 13:21:08 Hypothyroid ism 63784695 Active 2023 Shea Aramis, TOUR OPERATOR [address] [place] [address], [address], [place] [employer] 5 13:21:04 Hyperlipide lee 92975366 Active 2024 Shea Aramis, TOUR OPERATOR [address] [place] [address], [phone] 8, [place] [employer] 13:20:57 Fatigue 73655295 Active 2024 Shea Aramis, TOUR OPERATOR [address] [place] [address], [address] 8, [place] [employer] 13:20:53 Vitamin D deficiency 42903790 Active 2024 Shea Aramis, TOUR OPERATOR [address] [place] [address], [address], [place] [employer] 13:21:17 Vitamin B deficiency 89705771 Active 2024 Shea Self, TOUR OPERATOR [address] [place] [address], [address] 8, [place] [employer] 13:21:14 Hyperglycem ia 61054698 Active 2024 Shea Self, TOUR OPERATOR [address] [place] [address], [phone] 8, [place] [employer] 5 13:20:55 Subacute cough Completed 202410/26/2024 Shea Self, TOUR OPERATOR [address] [place] [address], [address], [place] [employer] 13:21:10 Bronchitis 72993547 Completed 202410/26/2024 Shea Self, TOUR OPERATOR [address] [place] [address], [address] 8, [employer] 13:20:50 Acute bronchitis 91891868 Completed 202410/26/2024 Shea Self NP [address] [place] [address], [address], [employer] 13:20:48 Mild intermitten t asthma 244032187 Active 2024 Shea Self NP [address] [place] [address], [address], [employer] 10:13:59 Allergic reaction to food 866333053 Active 2024 Shea Self NP [address] [place] [address], [address] 8, [employer] 10:13:56 Body mass index 25-29 - overweight 646055771 Active 2024 Shea Self NP [address] [place] [address], [address] 8, [employer] 10:13:53 Essential hypertensio n 32441126 Active 2024 Shea Self NP [address] [place] [address], [address] 8, [employer] 10:13:51 Exacerbatio n of moderate persistent asthma 395433967 Completed 202401/23/2025 Shea Self NP [address] [place] [address], [address], [employer] 10:13:48 Exacerbatio n of intermitten t asthma 117192817 Completed 202401/23/2025 Shea Self NP [address] [place] [address], [address], [employer] 5 10:13:49 Gastroesoph ageal reflux disease without esophagitis 164745844 Active 2024 Shea Self NP [address] [place] [address], [address], [employer] 10:17:46 Problem Notes None recorded. Procedures Surgical History Date Name Laterality Status Provider Name and Address Organization Details Recorded Time 01/11/20 Most Recent Mammogram completed [employer] 01/19/2024 08:08:01 Knee Replacement completed [employer]. 10/26/2022 14:02:47 Hip Replacement completed [employer]. 10/26/2022 14:02:56 tonsilectomy/adeno ids completed [employer]. 10/26/2022 14:03:05 abdominoplasty completed [employer]. 10/26/2022 14:03:13 Imaging Results None recorded. Procedure [...] Updated DateTime 5 162.56 cm 29.1 kg/m2 70553.5 5 g 98.1 [degF] 81 /min 93 % 93 % 143/70 mm[Hg] 125/67 mm[Hg] AISHA BYRD Joppel. 5 10:20:13 Social History Question Answer Notes LastModified by Organizat ion Details LastModified Time Tobacco Smoking Status Never Smoker [employer] thornton, Jopp[employer]. 10/26/2022 14:02:16 Do You Have An Advance Directive? No [email or web address] Information n ot available 08/18/2023 Is Your [...] Do You Have A Medical Power Of [employer]icon[employer] Wafers Marker? No [email or web address] Information not available 08/18/2023 What Was The [...] 10/26/2022 Are You Currently In School? No [email or web address] Information not available 08/18/2023 Do You Have Any Dietary Restrictions? Yes Meats Information not available 10/26/2022 Sex: Female Functional Status Question Answer Note LastModified by Organizat ion Details LastModified Time Do you use any illicit or recreational drugs? No Information not available 10/26/2022 Do you or have you ever used any other forms of tobacco or nicotine? No [email or web address] Information not available 08/18/2023 What is your level of alcohol consumption? None Information not available 10/26/2022 Are you currently employed? No Retired from [employer] [email or web address] Information not available 08/18/2023 Do you have [...] anxious, or unable to sleep at night)? [id number] Information not available 01/23/2025 Do you have difficulty concentrating, remembering or making decisions? No Information no t available 10/26/2022 Family History Relationship Description Onset Age of this Age Resolved Age Notes LastModified by Organization Details LastModified Time Mother Diabetes mellitus Not available 10/26 14:00:57 Sister Diabetes mellitus Not available 10/26 14:00:57 Brother Diabetes mellitus Not available 10/26 14:00:57 Medical History Condition Response Emergency room visit since last appointm ent. N Acid Reflux (GERD) N Fibromyalgia N Allergies/Hayfever N Hospitalizations N GI Problems N Acne N ADD/ADHD N Abuse/Domestic Violence N Gynecological History Statement/Question Response Date of Last Pap Smear Most Recent Mammogram 01/11/2024 Obstetrics History GPAL:G 0 P 0 0 0 0 Immunizations Vaccine Type Date Status Note Provider Name and Address Organization Details Recorded Time zoster recombinant cancelled patient objection Brenda Mejia APRN [address] [place], [address], [employer] 10/21/2023 13:11:35 pneumococcal polysaccharide PPV23 cancelled patient objection Brenda Mejia APRN [address] [place], [address], [employer] 10/21/2023 13:11:35 zoster recombinant 025 completed Ena Wooten null, [employer] 10/26/2024 16:40:12 Pneumococcal conjugate PCV15, polysaccharide [id number] conjugate, adjuvant, PF 025 completed Ena Wooten null, [employer] 10/26/2024 16:40:12 zoster recombinant 025 completed Sharlene Ley null, [employer] 01/23/2025 12:53:57 COVID-19, mRNA, LNP-S, PF, 100 mcg/0.5mL dose or 50 mcg/0.25mL dose 022 completed Chelsea Vladimir null, [employer] 01/28/2023 08:17:56 COVID-19, mRNA, LNP-S, PF, 100 mcg/0.5mL dose or 50 mcg/0.25mL dose 021 completed Chelsea Vladimir null, [employer] 01/28/2023 08:17:56 COVID-19, mRNA, LNP-S, PF, 100 mcg/0.5mL dose or 50 mcg/0.25mL dose 021 completed Chelsea Montcalm null, [employer] 01/28/2023 08:17:56 Tdap 019 completed Chelsea Montcalm null, [employer] 01/28/2023 08:17:56 Influenza, recombinant, trivalent, PF 019 completed Chelsea Montcalm null, [employer] 01/28/2023 08:17:56 COVID-19, mRNA, LNP-S, PF, 50 mcg/0.5 mL 021 completed Not Available [facility] 01/23/2025 08:26:17 COVID-19, mRNA, LNP-S, PF, 50 mcg/0.5 mL 021 completed Juana Moran null, [employer] 10/17/2024 08:38:53 Past Encounters Encounter ID Performer Location Encounter Start Date Encounter Closed Date Diagnosis/Indication Diagnosis SNOMED-CT Code Diagnosis ICD10 Code Diagnosis IMO Codes Diagnosis Note [id number] Shea Self NP [address] [phone] 12/31/2024 10:13:05 12/31/2024 11:33:30 Hypothyroidism 67939859 E03.9 Essential hypertension 50564676 I10 Mild inter mittent asthma 887979843 J45.20 Exacerbati on of intermittent asthma 646993799 J45.21 [id number] Health Concerns Section Related Observation LastModified by Organization Detai ls LastModified Time None Recorded Concern Status LastModified by Organization Details LastModified Time None Recorded Payers Encounter Date Sequence Insurance Name Policy Number Policy Miles Covered Member ID Miles Member ID Guarantor Name 12/31/2024 1 [place] BC[employer] OF [facility] ([place] MEDI[employer] PL[employer] (MEDICARE REPLACEMENT HMO) [id number] Kayleenruth Webb [id number] Kayleenruth Sheason Notes Date Note Type Note Provider Name and Address Organization Details Recorded Time 12/31/2024 text/html Patient presents for asthma flare. States she cannot get a deep breath. She has been using her inhaler several times per day and it is not lasting the whole day. She is wheezing. No fever or chills. Shea Self NP [address] [place], [address], [employer] 01/02/2025 18:18:26 OBGyn Episode No OBEpisode recorded.
--- OUTSIDE RECORDS SUMMARY | 2025-02-06 07:58 | XMS_ITS | Encounter Summary ---
[facility] Organization [facility] Address [address] [place] [address] Care Team Providers Care Motor Runner Name Role Phone Brenda Mejia Primary Care Provider [phone] Encounter Details Date Type Department Care Team (Late Contact Info) Description 02/10/2022 Telephone [facility] [address] [place] [address] Jaret Miramontes MD [address] [place] [address] Social History Tobacco Use Types [...] Info) Description 04/29/2025 8:30 AM EST Appointment [facility] RHEUMAT[facility] DEXA [address] [address] 04/29/2025 9:00 AM EST Office Visit [facility] [address] [address] Anshu Maloney APRN [address] [place] [address] documented as of this encounter Visit Diagnoses Not on filedocumented in this encounter Care Teams Motor Runner Relationship Specialty Start Date End Date RobertoBrenda Lashaun [address] [place] [address] PCP - General Nurse Practitioner 01/02/24 documented as of this encounter
--- OUTSIDE RECORDS SUMMARY | 2025-02-06 07:58 | XMS_ITS | Continuity of Care Document ---
Author Organization [employer], [place] [facility] Address [address] [place] [address] Assessment Encounter Date Assessment Date Assessment LastModified by Organization Details LastModified Time 01/23/2025 01/23/2025 Patient presente d to office [...] for recheck, sooner if needed. Will see plant wrapper before that appt, may not see rheumatology until after that appt (due later in Apr). Not available 01/23/2025 10:49:55 Plan of Treatment Reminders Order Date Submit Date Provider Last Modified By Organization Details Last Modified Time Details Appointments FOLLOW UP 30 2024 09:00A Shea Bennett Not available Not available Not available Lab unlisted lab - toxassure flex 20, [id number] 2024 025 [id number] ([place]), [facility] [place], [address], 01/27/2025 12:07:19 Hepatitis C IgG Ab, qual, serum 2024 025 [facility] [address] [place], [address], 01/27/2025 12:07:22 HIV 1 + 2, meaningfu l use set 2024 025 [facility] ([place]), [address] [place], [address], 01/27/2025 12:07:23 CBC w/ auto diff 2024 025 [facility] ([place]), [address] [place], [address], 01/27/2025 12:07:21 CMP, serum or plasma 2024 025 [facility] [place]note 2[place] [address] [place], [address], 01/27/2025 12:07:21 lipid panel, serum 2024 025 [facility] [place]note 2[place] [address] [place], [address], 01/27/2025 12:07:22 TSH + free T4, serum 2024 025 [facility] [place]note 2[place] [address] [place], [address], 01/27/2025 12:07:20 Referral None recorded. Procedures colonosco py screening (PROC) 2024 0[facility], [address], [place], [address], 01/24/2025 11:31:07 Surgeries None recorded. Imaging MAMMO, screening , digital, bilateral [address] (Scheduling), [address], [place], [address], 01/30/2025 13:25:13 Medication Orders amlodipin e 10 mg tablet 2024 025 [facility], [address] [place] [address], [id number], 01/31/2025 14:15:22 losartan 50 mg-hydroc hlorothia zide 12.5 mg tablet 2024 025 [facility], [address] [place] [address], [address], 01/28/2025 17:48:36 atorvasta tin 20 mg tablet 2024 025 [facility], [address] [place] [address], [id number], 01/31/2025 14:15:21 omeprazol e 20 mg capsule,d elayed release 2024 025 [facility], [address] [place] [address], [id number], 01/23/2025 11:15:52 Patient TargetsNo targets recorded. Patient Instructions Encounter Date Encounter Id Patient Instructions Last Modified By Organization Details Last Modified Time 01/23/2025 [id number] advance care planning: care instructions Not available 01/23/2025 10:44:32 Discussed and explained advance directives such as standard forms to the patient. Face to face discussion lasted for a duration of 2.5 minutes. Not available 01/23/2025 10:42:02 Reason for Referral None Reported. Results Created Date Observation Date Name Description Value Unit Range Abnormal Flag Note LastModifiedBy Organization Detail LastModifiedTime 01/24/2001/27/2025 TOXAS SURE FLEX 20, UR summary report FINAL ===== ===== ===== ===== ===== ===== ===== ===== ===== ===== ===== ===== ===== === Gabap lioneln , MS, Ur RFX ToxAs sure Flex [...] ===== ===== ===== === Not Available [facility] ([facility]) [address] [facility], [place], [address], 01/27/2025 12:07:19 01/24/20 25 01/27/2025 TOXAS SURE FLEX 20, UR pdf . Not Available [facility] ([facility]) [address] [facility], [place], [address], 01/27/2025 12:07:19 01/24/20 25 01/27/2025 TOXAS SURE FLEX 20, UR creatinine 64 mg/dL >=20 REFER ENCE RANGE : Ref Range >=20 Not Available [facility] ([facility]) [address] [place], [address], 01/27/2025 12:07:19 01/24/20 25 01/27/2025 TOXAS SURE FLEX 20, UR amphetamines ia Negati ve NG/mL cutoff :300 Not Available [facility] ([facility]) [address] [place], [address], 01/27/2025 12:07:19 01/24/20 25 01/27/2025 TOXAS SURE FLEX 20, UR benzodiazepi deyvi Negati ve Not Available [facility] ([facility]) [address] [place], [address], 01/27/2025 12:07:19 01/24/20 25 01/27/2025 TOXAS SURE FLEX 20, UR diazepam Not Detect ed NG/mg _crea t Not Available [facility] ([facility]) [address] [place], [address], 01/27/2025 12:07:19 01/24/20 25 01/27/2025 TOXAS SURE FLEX 20, UR desmethyldia zepam Not Detect ed NG/mg _crea t Not Available [facility] ([facility]) [address] [place], [address], 01/27/2025 12:07:19 01/24/20 25 01/27/2025 TOXAS SURE FLEX 20, UR oxazepam Not Detect ed NG/mg _crea t Not Available [facility] ([facility]) [address] [place], [address], 01/27/2025 12:07:19 01/24/20 25 01/27/2025 TOXAS SURE [...] Oxaze ivelisse Temaz epam: Oxaze ivelisse Oxaze ivelisse: None Not Available [facility] ([facility]) [address] [place], [address], 01/27/2025 12:07:19 01/24/20 25 01/27/2025 TOXAS SURE FLEX 20, UR alprazolam Not Detect ed NG/mg _crea t Not Available [facility] ([facility]) [address] [place], [address], 01/27/2025 12:07:19 01/24/20 25 01/27/2025 TOXAS SURE FLEX 20, UR alpha-hydrox yalprazolam Not Detect ed NG/mg _crea t Not Available [facility] ([facility]) [address] [place], [address], 01/27/2025 12:07:19 01/24/20 25 01/27/2025 TOXAS SURE FLEX 20, UR desalkylflur azepam Not Detect ed NG/mg _crea t Not Available [facility] ([facility]) [address] [place], [address], 01/27/2025 12:07:19 01/24/20 25 01/27/2025 TOXAS SURE FLEX 20, UR lorazepam Not Detect ed NG/mg _crea t Not Available [facility] ([facility]) [address] [place], [address], 01/27/2025 12:07:19 01/24/20 25 01/27/2025 TOXAS SURE FLEX 20, UR alpha-hydrox ytriazolam Not Detect ed NG/mg _crea t Not Available [facility] ([facility]) [address] [place], [address], 01/27/2025 12:07:19 01/24/20 25 01/27/2025 TOXAS SURE FLEX 20, UR clonazepam Not Detect ed NG/mg _crea t Not Available [facility] ([facility]) [address] [place], [address], 01/27/2025 12:07:19 01/24/20 25 01/27/2025 TOXAS SURE FLEX 20, UR 7-aminoclona zepam Not Detect ed NG/mg _crea t Not Available [facility] ([facility]) [address] [place], [address], 01/27/2025 12:07:19 01/24/20 25 01/27/2025 TOXAS SURE FLEX 20, UR midazolam Not Detect ed NG/mg _crea t Not Available [facility] ([facility]) [address] [place], [address], 01/27/2025 12:07:19 01/24/20 25 01/27/2025 TOXAS SURE FLEX 20, UR alpha-hydrox ymidazolam Not Detect ed NG/mg _crea t Not Available [facility] ([facility]) [address] [place], [address], 01/27/2025 12:07:19 01/24/20 25 01/27/2025 TOXAS SURE FLEX 20, UR flunitrazepa m Not Detect ed NG/mg _crea t Not Available [facility] ([facility]) [address] [place], [address], 01/27/2025 12:07:19 01/24/20 25 01/27/2025 TOXAS SURE FLEX 20, UR desmethylflu nitrazepam Not Detect ed NG/mg _crea t Not Available [facility] ([facility]) [address] [place], [address], 01/27/2025 12:07:19 01/24/20 25 01/27/2025 TOXAS SURE FLEX 20, UR cocaine metabolite ia Negati ve NG/mL cutoff :150 Not Available [facility] ([facility]) [address] [place], [address], 01/27/2025 12:07:19 01/24/20 25 01/27/2025 TOXAS SURE FLEX 20, UR ethanol biomarkers ia Negati ve NG/mL cutoff :500 Not Available [facility] ([facility]) [address] [place], [address], 01/27/2025 12:07:19 01/24/20 25 01/27/2025 TOXAS SURE FLEX 20, UR cannabinoids ia Negati ve NG/mL cutoff :20 Not Available [facility] ([facility]) [address] [place], [address], 01/27/2025 12:07:19 01/24/20 25 01/27/2025 TOXAS SURE FLEX 20, UR 6-acetylmorp martha ia Negati ve NG/mL cutoff :10 Not Available [facility] ([facility]) [address] [place], [address], 01/27/2025 12:07:19 01/24/20 25 01/27/2025 TOXAS SURE FLEX 20, UR opiate class ia Negati ve NG/mL cutoff :100 Not Available [facility] ([facility]) [address] [place], [address], 01/27/2025 12:07:19 01/24/20 25 01/27/2025 TOXAS SURE FLEX 20, UR oxycodone class ia Negati ve NG/mL cutoff :100 Not Available [facility] ([facility]) [address] [place], [address], 01/27/2025 12:07:19 01/24/20 25 01/27/2025 TOXAS SURE FLEX 20, UR methadone ia Negati ve NG/mL cutoff :100 Not Available [facility] ([facility]) [address] [place], [address], 01/27/2025 12:07:19 01/24/20 25 01/27/2025 TOXAS SURE FLEX 20, UR methadone mtb ia Negati ve NG/mL cutoff :100 Not Available [facility] ([facility]) [address] [place], [address], 01/27/2025 12:07:19 01/24/20 25 01/27/2025 TOXAS SURE FLEX 20, UR buprenorphin e ia Negati ve NG/mL cutoff :5.0 Not Available [facility] ([facility]) [address] [place], [address], 01/27/2025 12:07:19 01/24/20 25 01/27/2025 TOXAS SURE FLEX 20, UR fentanyl ia Negati ve NG/mL cutoff :2.0 Not Available [facility] ([facility]) [address] [place], [address], 01/27/2025 12:07:19 01/24/20 25 01/27/2025 TOXAS SURE FLEX 20, UR tapentadol ia Negati ve NG/mL cutoff :200 Not Available [facility] ([facility]) [address] [place], [address], 01/27/2025 12:07:19 01/24/20 25 01/27/2025 TOXAS SURE FLEX 20, UR propoxyphene ia Negati ve NG/mL cutoff :300 Not Available [facility] ([facility]) [address] [place], [address], 01/27/2025 12:07:19 01/24/20 25 01/27/2025 TOXAS SURE FLEX 20, UR tramadol ia Negati ve NG/mL cutoff :200 Not Available [facility] ([facility]) [address] [place] [address], [address], 01/27/2025 12:07:19 01/24/20 25 01/27/2025 TOXAS SURE FLEX 20, UR methylphenid ate ia Negati ve NG/mL cutoff :100 Not Available [facility] ([facility]) [address] [place], [address], 01/27/2025 12:07:19 01/24/20 25 01/27/2025 TOXAS SURE FLEX 20, UR barbiturates ia Negati ve NG/mL cutoff :200 Not Available [facility] ([facility]) [address] [place], [address], 01/27/2025 12:07:19 01/24/20 25 01/27/2025 TOXAS SURE FLEX 20, UR phencyclidin e ia Negati ve NG/mL cutoff :25 Not Available [facility] ([facility]) [address] [place] [address], [address], 01/27/2025 12:07:19 01/24/20 25 01/27/2025 TOXAS SURE FLEX 20, UR anticonvulsa nts +POSIT MICKY+ Not Available [facility] ([facility]) [address] [place], [address], 01/27/2025 12:07:19 01/24/20 25 01/27/2025 TOXAS SURE FLEX 20, UR gabapentin ia COMMEN T ug/mL cutoff :1.0 Furth er testi ng indic ated Not Available [facility] ([facility]) [address] [place] [address], [address], 01/27/2025 12:07:19 01/24/20 25 01/27/2025 TOXAS SURE FLEX 20, UR pregabalin Not Detect ed Not Available [facility] ([facility]) [address] [facility], [place], [address], 01/27/2025 12:07:19 01/24/20 25 01/27/2025 TOXAS SURE FLEX 20, UR carisoprodol ia Negati ve NG/mL cutoff :100 Not Available [facility] ([facility]) [address] [facility], [place], [address], 01/27/2025 12:07:19 01/24/20 25 01/27/2025 TOXAS SURE FLEX 20, UR kratom ia Negati ve NG/mL cutoff :5.0 Not Available [facility] ([facility]) [address] [facility], [place], [address], 01/27/2025 12:07:19 01/24/20 25 01/24/2025 TSH+F REE T4 TSH 0.926 uIU/m L 0.450- 4.500 normal Not Available [facility] ([facility]) [address] [facility], [place], [address], 01/27/2025 12:07:20 01/24/2001/24/2025 TSH+F REE T4 T4,free(dire ct) 1.54 NG/dL 0.82-1 .77 normal Not Available [facility] ([facility]) [address] [facility], [place], [address], 01/27/2025 12:07:20 01/24/20 25 01/24/2025 CBC WITH DIFFE RENTI AL/PL ATELE T WBC 6.6 x10e3 /uL 3.4-10 .8 normal Not Available [facility] ([facility]) [address] [facility], [place], [address], 01/27/2025 12:07:20 01/24/20 25 01/24/2025 CBC WITH DIFFE RENTI AL/PL ATELE T RBC 4.52 x10e6 /uL 3.77-5 .28 normal Not Available [facility] ([facility]) [address] [facility], [place], [address], 01/27/2025 12:07:20 01/24/2001/24/2025 CBC WITH DIFFE RENTI AL/PL ATELE T hemoglobin 13.5 g/dL 11.1-1 5.9 normal Not Available [facility] ([facility]) [address] [place], [address], 01/27/2025 12:07:20 01/24/2001/24/2025 CBC WITH DIFFE RENTI AL/PL ATELE T hematocrit 40.6 % 34.0-4 6.6 normal Not Available [facility] ([facility]) [address] [facility], [place], [address], 01/27/2025 12:07:20 01/24/20 25 01/24/2025 CBC WITH DIFFE RENTI AL/PL ATELE T MCV 90 fL 79-97 normal Not Available [facility] ([facility]) [address] [place], [address], 01/27/2025 12:07:20 01/24/20 25 01/24/2025 CBC WITH DIFFE RENTI AL/PL ATELE T MCH 29.9 pg 26.6-3 3.0 normal Not Available [facility] ([facility]) [address] [place], [address], 01/27/2025 12:07:20 01/24/2001/24/2025 CBC WITH DIFFE RENTI AL/PL ATELE T MCHC 33.3 g/dL 31.5-3 5.7 normal Not Available [facility] ([facility]) [address] [place], [address], 01/27/2025 12:07:20 01/24/20 25 01/24/2025 CBC WITH DIFFE RENTI AL/PL ATELE T RDW 13.1 % 11.7-1 5.4 Not Available [facility] ([facility]) [address] [facility], [place], [address], 01/27/2025 12:07:20 01/24/20 25 01/24/2025 CBC WITH DIFFE RENTI AL/PL ATELE T platelets 178 x10e3 /uL 150-45 0 normal Not Available [facility] ([facility]) [address] [facility], [place], [address], 01/27/2025 12:07:20 01/24/20 25 01/24/2025 CBC WITH DIFFE RENTI AL/PL ATELE T neutrophils 55 % not estab. normal Not Available [facility] ([facility]) [address] [facility], [place], [address], 01/27/2025 12:07:20 01/24/20 25 01/24/2025 CBC WITH DIFFE RENTI AL/PL ATELE T lymphs 30 % not estab. normal Not Available [facility] ([facility]) [address] [facility], [place], [address], 01/27/2025 12:07:20 01/24/20 25 01/24/2025 CBC WITH DIFFE RENTI AL/PL ATELE T monocytes 9 % not estab. normal Not Available [facility] ([facility]) [address] [facility], [place], [address], 01/27/2025 12:07:20 01/24/20 25 01/24/2025 CBC WITH DIFFE RENTI AL/PL ATELE T eos 5 % not estab. normal Not Available [facility] ([facility]) [address] [facility], [place], [address], 01/27/2025 12:07:20 01/24/20 25 01/24/2025 CBC WITH DIFFE RENTI AL/PL ATELE T basos 1 % not estab. normal Not Available [facility] ([facility]) [address] [facility], [place], [address], 01/27/2025 12:07:20 01/24/20 25 01/24/2025 CBC WITH DIFFE RENTI AL/PL ATELE T immature cells [employer] Not Available [facility] ([facility]) [address] [place], [address], 01/27/2025 12:07:20 01/24/20 25 01/24/2025 CBC WITH DIFFE RENTI AL/PL ATELE T neutrophils (absolute) 3.7 x10e3 /uL 1.4-7. 0 normal Not Available [facility] ([facility]) [address] [place], [address], 01/27/2025 12:07:20 01/24/20 25 01/24/2025 CBC WITH DIFFE RENTI AL/PL ATELE T lymphs (absolute) 2.0 x10e3 /uL 0.7-3. 1 normal Not Available [facility] ([facility]) [address] [place], [address], 01/27/2025 12:07:20 01/24/20 25 01/24/2025 CBC WITH DIFFE RENTI AL/PL ATELE T monocytes(ab solute) 0.6 x10e3 /uL 0.1-0. 9 normal Not Available [facility] ([facility]) [address] [place], [address], 01/27/2025 12:07:20 01/24/20 25 01/24/2025 CBC WITH DIFFE RENTI AL/PL ATELE T eos (absolute) 0.3 x10e3 /uL 0.0-0. 4 normal Not Available [facility] ([facility]) [address] [place], [address], 01/27/2025 12:07:20 01/24/20 25 01/24/2025 CBC WITH DIFFE RENTI AL/PL ATELE T baso (absolute) 0.0 x10e3 /uL 0.0-0. 2 normal Not Available [facility] ([facility]) [address] [facility], [place], [address], 01/27/2025 12:07:20 01/24/20 25 01/24/2025 CBC WITH DIFFE RENTI AL/PL ATELE T immature granulocytes 0 % not estab. Not Available [facility] ([facility]) [address] [facility], [place], [address], 01/27/2025 12:07:20 01/24/20 25 01/24/2025 CBC WITH DIFFE RENTI AL/PL ATELE T immature grans (abs) 0.0 x10e3 /uL 0.0-0. 1 Not Available [facility] ([facility]) [address] [facility], [place], [address], 01/27/2025 12:07:20 01/24/20 25 01/24/2025 CBC WITH DIFFE RENTI AL/PL ATELE T NRBC [employer] Not Available [facility] ([facility]) [address] [facility], [place], [address], 01/27/2025 12:07:20 01/24/20 25 01/24/2025 CBC WITH DIFFE RENTI AL/PL ATELE T hematology comments: FIN[employer] Not Available [facility] ([facility]) [address] [facility], [place], [address], 01/27/2025 12:07:20 01/24/20 25 01/24/2025 COMP. METAB OLIC PANEL (14) glucose 92 mg/dL 70-99 normal Not Available [facility] ([facility]) [address] [facility], [place], [address], 01/27/2025 12:07:21 01/24/20 25 01/24/2025 COMP. METAB OLIC PANEL (14) BUN 14 mg/dL 8-27 normal Not Available [facility] ([facility]) [address] [facility], [place], [address], 01/27/2025 12:07:21 01/24/20 25 01/24/2025 COMP. METAB OLIC PANEL (14) creatinine 0.71 mg/dL 0.57-1 .00 normal Not Available [facility] ([facility]) [address] [facility], [address], 01/27/2025 12:07:21 01/24/20 25 01/24/2025 COMP. METAB OLIC PANEL (14) eGFR 93 mL/mi n/1.7 3 >59 normal Not Available [facility] ([facility]) [address] [facility], [place], [address], 01/27/2025 12:07:21 01/24/20 25 01/24/2025 COMP. METAB OLIC PANEL (14) BUN/creatini ne ratio 20 12-28 normal Not Available [facility] ([facility]) [address] [facility], [place], [address], 01/27/2025 12:07:21 01/24/20 25 01/24/2025 COMP. METAB OLIC PANEL (14) sodium 141 mmol/ L 134-14 4 normal Not Available [facility] ([facility]) [address] [place], [address], 01/27/2025 12:07:21 01/24/20 25 01/24/2025 COMP. METAB OLIC PANEL (14) potassium 3.8 mmol/ L 3.5-5. 2 normal Not Available [facility] ([facility]) [address] [facility], [address], 01/27/2025 12:07:21 01/24/20 25 01/24/2025 COMP. METAB OLIC PANEL (14) chloride 104 mmol/ L 96-106 normal Not Available [facility] ([facility]) [address] [facility], [place], [address], 01/27/2025 12:07:21 01/24/20 25 01/24/2025 COMP. METAB OLIC PANEL (14) carbon dioxide, total 21 mmol/ L 20-29 normal Not Available [facility] ([facility]) [address] [facility], [address], 01/27/2025 12:07:21 01/24/20 25 01/24/2025 COMP. METAB OLIC PANEL (14) calcium 9.9 mg/dL 8.7-10 .3 normal Not Available [facility] ([facility]) [address] [facility], [address], 01/27/2025 12:07:21 01/24/20 25 01/24/2025 COMP. METAB OLIC PANEL (14) protein, total 7.3 g/dL 6.0-8. 5 normal Not Available [facility] ([facility]) [address] [facility], [address], 01/27/2025 12:07:21 01/24/20 25 01/24/2025 COMP. METAB OLIC PANEL (14) albumin 5.0 g/dL 3.9-4. 9 above high normal Not Available [facility] ([facility]) [address] [facility], [address], 01/27/2025 12:07:21 01/24/20 25 01/24/2025 COMP. METAB OLIC PANEL (14) globulin, total 2.3 g/dL 1.5-4. 5 Not Available [facility] ([facility]) [address] [place], [address], 01/27/2025 12:07:21 01/24/20 25 01/24/2025 COMP. METAB OLIC PANEL (14) bilirubin, total 2.0 mg/dL 0.0-1. 2 above high normal Not Available [facility] ([facility]) [address] [place], [address], 01/27/2025 12:07:21 01/24/20 25 01/24/2025 COMP. METAB OLIC PANEL (14) alkaline phosphatase 101 IU/L 49-135 normal Ple ase note refer ence inter maricruz woodson e Not Available [facility] ([facility]) [address] [place], [address], 01/27/2025 12:07:21 01/24/20 25 01/24/2025 COMP. METAB OLIC PANEL (14) AST (SGOT) 25 IU/L 0-40 normal Not Available [facility] ([facility]) [address] [place], [address], 01/27/2025 12:07:21 01/24/20 25 01/24/2025 COMP. METAB OLIC PANEL (14) ALT (SGPT) 16 IU/L 0-32 normal Not Available [facility] ([facility]) [address] [place], [address], 01/27/2025 12:07:21 01/24/20 25 01/24/2025 LP cholesterol, total 149 mg/dL 100-19 9 normal Not Available [facility] ([facility]) [address] [place], [address], 01/27/2025 12:07:22 01/24/20 25 01/24/2025 LP triglyceride s 98 mg/dL 0-149 normal Not Available [facility] ([facility]) [address] [place], [address], 01/27/2025 12:07:22 01/24/2001/24/2025 LP HDL cholesterol 59 mg/dL >39 normal Not Available [facility] ([facility]) [address] [place], [address], 01/27/2025 12:07:22 01/24/20 25 01/24/2025 LP VLDL cholesterol tripp 18 mg/dL 5-40 Not Available [facility] ([facility]) [address] [place], [address], 01/27/2025 12:07:22 01/24/20 25 01/24/2025 LP LDL chol calc ([facility]) 72 mg/dL 0-99 Not Available [facility] ([facility]) [address] [facility], [place], [address], 01/27/2025 12:07:22 01/24/20 25 01/24/2025 LP LDL calc comment: FINAL [employer]PECT[employer] Not Available [facility] ([facility]) [address] [facility], [place], [address], 01/27/2025 12:07:22 01/24/20 25 01/24/2025 HCV ANTIB LILIANA CASCA DE(PC R/GEN O) HCV Ab Non Reacti ve non reacti ve Not Available [facility] ([facility]) [address] [facility], [place], [address], 01/27/2025 12:07:22 01/24/20 25 01/24/2025 HCV ANTIB LILIANA CASCA DE(PC R/GEN O) interpretati on: Commen t Not infec melania with HCV unles s early or acute infec tion is suspe cted (whic h may be delay ed in an immun ocomp romis ed indiv idual ), or other evide nce exist s to indic ate HCV infec tion. Not Available [facility] ([facility]) [address] [facility], [place], [address], 01/27/2025 12:07:22 01/24/20 25 01/27/2025 GABAP ENTIN , MS, UR RFX anticonvulsa nts +POSIT MICKY+ Not Available [facility] ([facility]) [address] [facility], [place], [address], 01/27/2025 12:07:23 01/24/20 25 01/27/2025 GABAP ENTIN , MS, UR RFX gabapentin PRESEN T Not Available [facility] ([facility]) [address] [facility], [place], [address], 01/27/2025 12:07:23 01/24/20 25 01/24/2025 HIV AB/P2 4 AG WITH REFLE X HIV Ab/P24 Ag screen Non Reacti ve non reacti ve HIV-1 /HIV- 2 antib odies and HIV-1 p24 antig en were NOT detec melania. There is no labor atory evide nce of HIV infec tion. HIV Negat micky Not Available [facility] ([facility]) [address] [facility], [place], [address], 01/27/2025 12:07:23 01/01/20 25 XR, chest , 2 view No observ ation record ed. [address], [address], 01/02/2025 12:19:33 Result Notes None recorded. 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 13:20:52 Rib pain 974500745 Completed 202310/26/2024 Shea Self NP [address] [place] [address], 26[address]805 8, [employer] 5 13:21:08 Hypothyroid ism 91614209 Active 2023 Shea Self NP [address] [place] [address], 51007-730 8, [employer] 5 13:21:04 Hyperlipide lee 30965336 Active 2024 Shea Self NP [address] [place] [address], 66713-460 8, [employer] 13:20:57 Fatigue 01511967 Active 2024 Shea Self NP [address] [place] [address], 16049-458 8, [employer] 13:20:53 Vitamin D deficiency 45953332 Active 2024 Shea Self NP [address] [place] [address], 79974-462 8, [employer] 5 13:21:17 Vitamin B deficiency 93806086 Active 2024 Shea Self NP [address] [place] [address], 12715-265 8, [employer] 13:21:14 Hyperglycem ia 59467573 Active 2024 Shea Self NP [address] [place] [address], 38924-761 8, [employer] 13:20:55 Subacute cough Completed 202410/26/2024 Shea Self NP [address] [place] [address], 12390-287 8, [employer] 13:21:10 Bronchitis 86662671 Completed 202410/26/2024 Shea Self NP [address] [place] [address], 67866-012 8, [employer] 13:20:50 Acute bronchitis 92360441 Completed 202410/26/2024 Shea Self NP [address] [place] [address], 08306-676 8, [employer] 13:20:48 Mild intermitten t asthma 046194123 Active 2024 Shea Self NP [address] [place] [address], 18322-373 8, [employer] 5 10:13:59 Allergic reaction to food 769534072 Active 2024 Shea Self NP [address] [place] [address], 18687-738 8, [employer] 5 10:13:56 Body mass index 25-29 - overweight 947067412 Active 2024 Shea Self NP [address] [place] [address], 09588-401 8, [employer] 10:13:53 Essential hypertensio n 25458312 Active 2024 Shea Self NP [address] [place] [address], 41551-983 8, [employer] 10:13:51 Exacerbatio n of moderate persistent asthma 382680861 Completed 202401/23/2025 Shea Self NP [address] [place] [address], 002[address]-868 8, [employer] 10:13:48 Exacerbatio n of intermitten t asthma 896268877 Completed 202401/23/2025 Shea Self NP [address] [place] [address], 62051-915 8, [employer] 10:13:49 Gastroesoph ageal reflux disease without esophagitis 382701745 Active 2024 Shea Self NP [address] [place] [address], 83707-483 8, [employer] 10:17:46 Problem Notes None recorded. Procedures Surgical History Date Name Laterality Status Provider Name and Address Organization Details Recorded Time 01/11/20 24 Most Recent Mammogram completed [employer] 01/19/2024 08:08:01 Knee Replacement completed [employer] 10/26/2022 14:02:47 Hip Replacement completed [employer] 10/26/2022 14:02:56 tonsilectomy/adeno ids completed [employer] 10/26/2022 14:03:05 abdominoplasty completed [employer] 10/26/2022 14:03:13 Imaging Results None recorded. Procedure [...] Updated DateTime 5 162.56 cm 29.4 kg/m2 97305.3 g 65 /min 97 % 97 % 98.4 [degF] 134/74 mm[Hg] Juana Moran [employer] 5 08:43:20 Social History Question Answer Notes LastModified by Organizat ion Details LastModified Time Tobacco Smoking Status Never Smoker [employer] 10/26/2022 14:02:16 Do You Have An Advance Directive? No [email or web address] Information n ot available 08/18/2023 Is Your [...] Do You Have A Medical Power Of Kettle Cook? No Information not available 08/18/2023 What Was The [...] 10/26/2022 Are You Currently In School? No [email or web address] Information not available 08/18/2023 Do You Have Any Dietary Restrictions? Yes Meats Information not available 10/26/2022 Sex: Female Functional Status Question Answer Note LastModified by Organizat ion Details LastModified Time Do you use any illicit or recreational drugs? No Information not available 10/26/2022 Do you or have you ever used any other forms of tobacco or nicotine? No [email or web address] Information not available 08/18/2023 What is your level of alcohol consumption? None Information not available 10/26/2022 Are you currently employed? No Retired from [email or web address] Information not available 08/18/2023 Do you have [...] anxious, or unable to sleep at night)? [id number] Information not available 01/23/2025 Do you have difficulty concentrating, remembering or making decisions? No Information no t available 10/26/2022 Family History Relationship Description Onset Age of this Age Resolved Age Notes LastModified by Organization Details LastModified Time Mother Diabetes mellitus Not available 10/26 14:00:57 Sister Diabetes mellitus Not available 10/26 14:00:57 Brother Diabetes mellitus Not available 10/26 14:00:57 Medical History Condition Response Allergies/Hayfever N Hospitalizations N Emergency room visit since last appointm ent. N GI Problems N Acne N ADD/ADHD N Acid Reflux (GERD) N Abuse/Domestic Violence N Fibromyalgia N Gynecological History Statement/Question Response Date of Last Pap Smear Most Recent Mammogram 01/11/2024 Obstetrics History GPAL:G 0 P 0 0 0 0 Immunizations Vaccine Type Date Status Note Provider Name and Address Organization Details Recorded Time zoster recombinant 024 cancelled patient objection Brenda Mejia, [employer] [address] [place], [address], [employer] 10/21/2023 13:11:35 pneumococcal polysaccharide PPV23 cancelled patient objection Brenda Mejia, ME[employer] INS[employer] [address] [place], [address], [employer] 10/21/2023 13:11:35 zoster recombinant 025 completed Ena Wooten Kamicat, [employer] 10/26/2024 16:40:12 Pneumococcal conjugate PCV15, polysaccharide FRQ454 conjugate, adjuvant, PF 025 completed Ena Wooten null, [employer] 10/26/2024 16:40:12 zoster recombinant 025 completed Sharlene Ley null, [employer] 01/23/2025 12:53:57 COVID-19, mRNA, LNP-S, PF, 100 mcg/0.5mL dose or 50 mcg/0.25mL dose 022 completed Chelsea Gilbert null, [employer] 01/28/2023 08:17:56 COVID-19, mRNA, LNP-S, PF, 100 mcg/0.5mL dose or 50 mcg/0.25mL dose 021 completed Chelsea Malheur null, [employer] 01/28/2023 08:17:56 COVID-19, mRNA, LNP-S, PF, 100 mcg/0.5mL dose or 50 mcg/0.25mL dose 021 completed Chelsea Vladimir null, [employer] 01/28/2023 08:17:56 Tdap 019 completed Chelsea Vladimir null, [employer] 01/28/2023 08:17:56 Influenza, recombinant, trivalent, PF 019 completed Chelsea Malheur null, [employer] 01/28/2023 08:17:56 COVID-19, mRNA, LNP-S, PF, 50 mcg/0.5 mL 021 completed Not Available [facility] 01/23/2025 08:26:17 COVID-19, mRNA, LNP-S, PF, 50 mcg/0.5 mL 021 completed Juana Moran null, [employer] 10/17/2024 08:38:53 Past Encounters Encounter ID Performer Location Encounter Start Date Encounter Closed Date Diagnosis/Indication Diagnosis SNOMED-CT Code Diagnosis ICD10 Code Diagnosis IMO Codes Diagnosis Note [id number] Shea Self NP [address] [address] 12/31/2024 10:13:05 12/31/2024 11:33:30 Hypothyroidism 06875598 E03.9 Essential hypertension 10502400 I10 Mild inter mittent asthma 132289448 J45.20 Exacerbati on of intermittent asthma 259634633 J45.21 259314 [id number] Shea Self NP [address] [address] 01/23/2025 08:22:08 01/23/2025 11:46:36 Screening for cardiovascular system disease 398675864 Z13.6 Screening mammography 24 886647 Z12.31 Screening for malignant neoplasm of colon 471663215 Z12.11 Hypothyroidism 89807911 E03.9 Viral scre ening status 768981316 Z11.59 972733 HIV screening 346727556 Z11.4 83555210 Mild inter mittent asthma 266420207 J45.20 0406641020 Immunization due 7256737 08 Z23 3666051 Gastroesop hageal reflux disease without esophagitis 395772990 K21.9 568618 Therapeuti c drug monitoring assay 74298381 Z51.81 115561 General ex amination of patient 942630670 Z00.00 38517672 Essential hypertension 70072583 I10 Hyperlipidemia 51533536 E78.5 Health Concerns Section Related Observation LastModified by Organization Detai ls LastModified Time None Recorded Concern Status LastModified by Organization Details LastModified Time None Recorded Payers Encounter Date Sequence Insurance Name Policy Number Policy Miles Covered Member ID Miles Member ID Guarantor Name 01/23/2025 1 [place] [employer] (MEDICARE REPLACEMENT HMO) [id number] Kayleenruth Sheason [id number] Kayleen Webb Notes Date Note Type Note Provider Name and Address Organization Details Recorded Time 01/23/2025 text/html Medicare Annual Wellness VisitReported by [...] while driving. Presents for annual wellness.Seeing an plant wrapper - Dr. Jorge Alves in [place] - now due to alpha gal - sees them on 01/28, will test for environmental allergies, r/t eye swelling and facial swelling. Has also had episodes of hives in the past month. Will have additional testing to check alpha gal in February. Information Clerk Brokerage thinks alpha gal may be worsening.Breathing has been better, has only used nebulizer 1-2x since prescribed. Breathing back to baseline since treated for exacerbation. Information Clerk Brokerage sent in [facility].Last colonoscopy was ~ 10 years ago, does not remember provider or where it was done at - somewhere in [place] - results were normal. No immediate FH of colon ca.Went to ER at [facility] ~ 5 weeks ago, was not admitted, went to be evaluated for throat discomfort, radiated to ears, was scared could be a heart attack, this was r/o, was told could be throat swelling or acid reflux.Declines flu vaccine.Mammogram to be scheduled. Shea Self NP [address] [facility], [place], [address], [place] [employer] 01/28/2025 17:14:35 OBGyn Episode No OBEpisode recorded.
--- OUTSIDE RECORDS SUMMARY | 2025-02-06 07:58 | XMS_ITS | Encounter Summary ---
Author Organization [facility] Address [address] [id number] Care Team Providers Care Transactional Paralegal Name Role Phone Brenda Mejia Primary Care Provider [phone] Reason for Visit * Reason Comments Med Refill Encounter Details Date Type Department Care Team (Late st Contact Info) Description 12/10/2024 Refill [facility] [address] [place] [address] Anshu Maloney APRN [address] [facility] [address] [place], [place] [phone] Primary osteoarthritis involving multiple joints Social History [...] Info) Description 04/29/2025 8:30 AM EST Appointment [facility] DEXA [address] [address] 04/29/2025 9:00 AM EST Office Visit [facility] [address] [place] [address] Anshu Maloney APRN [address] [address] documented as of this encounter Visit Diagnoses Diagnosis Primary osteoarthritis involving multiple joints documented in this encounter Care Teams Transactional Paralegal Relationship Specialty Start Date End Date Brenda Mejia [address] [address] [place] [address] PCP - General Nurse Practitioner 01/02/24 documented as of this encounter
--- NOTE | 2025-02-06 07:59 | MM_ITS ---
PROCEDURE INFORMATION: Exam: MG Bilateral Screening 3D Mammography Exam date and time: 02/06/2025 8:03 AM Age: 69 years old Clinical indication: Screening examination TECHNIQUE: Imaging protocol: Bilateral Screening tomosynthesis and 2D mammography including computer-aided detection (CAD) when performed. COMPARISON: 1. MG MM DIG SCREENING MAMM BI W/CAD 01/11/2024 1:08 PM 2. MG MM DIG SCREENING MAMM BI W/CAD 11/03/2022 4:44 PM FINDINGS: MAMMOGRAPHY: Breast composition: There are scattered areas of fibroglandular density. Mass: None. Architectural distortion: None. Calcifications: No suspicious calcifications. Asymmetric density: None. Skin thickening: None. Axillary adenopathy: None. IMPRESSION: No mammographic evidence of malignancy. Annual screening is recommended unless otherwise clinically indicated. ASSESSMENT: BI-RADS Category 1: Negative.
== END 2025-02-06 23:59 | disposition home or self-care (01) ==
LOC: RAD 07:55
PROVIDERS: PCP Nurse Practitioner Family; Visit Provider Nurse Practitioner Family
DX: Z12.31 Encounter for screening mammogram for malignant neoplasm of breast (principal); R92.323 Mammographic fibroglandular density, bilateral breasts
CPT/HCPCS: 77063; 77067

== ENCOUNTER 2025-04-24 09:37 | Day surgery (SDC) | payer MEDICARE, SELFPAY ==
--- NOTE | 2025-04-18 17:26 | P.HP_ITS ---
History of Present Illness *Admission Date: 04/24/25 *History of present illness: Mrs. Webb is a 69-year-old female who is here for screening/surveillance colonoscopy. Her last colonoscopy was in 2014. The examination is deemed medically necessary for screening/surveillance colonoscopy. The patient has b een seen, interviewed and examined prior to the procedure by both myself and the anesthesia provider. [facility] Disclaimer: The information contained in this section may have been updated after the patient was seen, as this information can be updated by other users. Medical History Neuropathy GERD (gastroesophageal reflux disease) Hypothyroid Asthma Hypertension Hyperlipemia Surgical History Total knee replacement status Tubal ligation status H/O abdominoplasty Tonsillectomy planned Family History Other No significant family history Social History (Updated 04/24/25 @ 10:44 by Geeta Medina CRNA) Smoking Status: Never smoker alcohol intake: never substance use type: unknown current occupational status: retired Travel in the last 8 weeks?: None Have you lived/traveled outside US in past 30 days?: No Contact w/someone who lives/traveled outside US past 30 days?: No Exposure to someone with infectious disease in past 14 days?: No Do you have a fever (greater than 100.4 F or 38 C)?: No Have you tested positive for COVID-19?: No Exposed to someone with COVID-19 in past 14 days?: No Do you have a sore throat?: No Do you have a cough?: No Do you have any weakness?: No Do you have any diarrhea?: No Are you experiencing any unusual bleeding?: No Do you have any muscle aches/pain?: No Do you have any abdominal pain?: No Are you experiencing loss of taste or smell?: No Review of Systems Review of Systems Review of systems (narrative): Negative *Cardiovascular Comments: Negative *Gastrointestinal Comments: Negative *Genitourinary Comments: Negative *Musculoskeletal Comments: Negative *Neurologic Comments: Negative Meds Home Medications and Allergies Home Medications ?Medication ?Instructions ?Recorded ?Confirmed ?Type sodium,potassium,mag sulfates 17.5 See Rx Instructions PO .COMPLEX 04/11/25 04/24/25 Rx gram-3.13 gram-1.6 gram oral soln #354 mL (Suprep Bowel Prep Kit) albuterol sulfate 90 mcg/actuation 1 puff inhalation A S NEEDED PRN 04/23/25 04/24/25 History aerosol inhaler Asthma amlodipine 10 mg tablet 10 mg PO DAILY 04/23/2504/08 History atorvastatin 20 mg tablet 20 mg PO DAILY 04/23/2504/08 History epinephrine 0.3 mg/0.3 mL 0.3 mg IM NEEDED PRN Myke rgic 04/23/25 04/23/25 History injection, auto-injector (Auvi-Q) Reaction famotidine 20 mg tablet 20 mg PO BID 04/23/25 History gabapentin 300 mg capsule 300 mg PO TID 04/23/2504/24 History levothyroxine 100 mcg tablet 100 mcg PO DAILY 04/23/25 04/24/25 History losartan 50 mg-hydrochlorothiazide 1 tab PO DAILY 04/0804/24/25 History 12.5 mg tablet sulindac 200 mg tablet 200 mg PO BID 04/23/2504/24 History New Prescriptions to Start Prescriptions: Allergies Allergy/AdvReac Type Severity Reaction Status Date / Time Alpha-Gal Allergy Unknown Verified 04/24/25 10:26 (Unythwdko-Rezxd-5,3-Gala allergy reaction Exam *Routine HEENT Exam Head: Present normocephalic Eye: Present EOMI and PERRL ENT: Present mucous membranes moist *Routine Neck Exam Neck: Present supple *Routine Respiratory Exam Respiratory: Present CTA bilaterally *Routine Cardiovascular Exam Cardiovascular: Present RRR *Routine Abdominal Exam Abdominal: Present soft and normoactive bowel sounds; Absent tenderness *Routine Rectal Exam Rectal:: deferred *Routine Genitalia Exam Genitalia:: deferred *Routine Extremities Exam Extremities: Absent cyanosis, clubbing or edema *Routine Skin Exam Skin: Present warm; Absent rash *Routine Neurological Exam Neurological: Present alert and oriented X3 Assessment and Plan *Assessment and plan (1) Screening for colon cancer: Status: Acute Category: Medical Code(s): Z12.11 - Encounter for screening for malignant neoplasm of colon Plan A/P: 1. Screening for colon cancer is the preprocedural diagnosis. The patient will be anesthetized/sedated using MAC sedation. The patient has been seen and examined. Cardiac and lung assessment prior to the examination is stable. Proceed with planned screening colonoscopy.
--- NOTE | 2025-04-24 07:07 | HMH.PROCNOTE ---
[facility] Procedure Note Date: 04/24/25 Time: 11:36 Procedure Note:: Colonoscopy Procedure Report: Colonoscopy Endoscopist: Charly Mcarthur II, MD Referring physician: MARIA R Rowley Date of Procedure: April 24, 2025 Equipment: Olympus [id number] adult colonoscope Sedation: MAC sedation Indication: Mrs. Webb is a 69-year-old female who is here for screening/surveillance colonoscopy. Her last colonoscopy was in 2014. The patient reports no abdominal pain, weight loss, change in her bowel habits or rectal bleeding. She does state that her paternal grandmother and paternal great grandmother had colostomy bags and believes this was from colon cancer/bowel cancer. The examination is deemed medically necessary for screening/surveillance colonoscopy. Procedure: Prior to the procedure, a history and physical exam was performed, and patient's medications and allergies were reviewed. The risks, benefits and alternatives of the sedation and procedure were discussed with the patient. All questions were answered and informed consent was obtained. The patient was brought to the procedure room. Patient identification and proposed procedure were verified by the physician and the nurse. The patient was placed in a left lateral decubitus position and the scope was passed under direct vision. Throughout the procedure, the patient's blood pressure, pulse, and oxygen saturations were monitored continuously. The colonoscopy was accomplished without difficulty. The patient tolerated the procedure well. Findings: On digital rectal examination there was normal rectal tone. There were no external hemorrhoids. The colonoscope was introduced through the anal canal to the rectum and advanced to the cecum. The ileocecal valve and appendiceal orifice were identified. The scope was advanced a short distance into the ileum which appeared grossly normal. The scope was then withdrawn into the colon. The cecum, ascending, transverse, descending, sigmoid and rectum were grossly normal. There were no mucosal abnormalities identified. Upon retroflexion within the rectum there were grade 1 internal hemorrhoids. The preparation was excellent throughout with Dovray Preparation Score of 9. The cecal time was 10 minutes. Impression: 1. Normal colonoscopy with intubation of the terminal ileum Plan: The patient will not require screening/surveillance colonoscopy again for 10 years by ACS guidelines.
[2025-04-24 10:27] VITALS: BP 144/75; PULSE 67; RESP 16; TEMP 36.3; O2SAT 97
[2025-04-24] MEDS: LACTATED RINGERS 1000ML 1,000 ML 50 ML IV (10:35)
--- NOTE | 2025-04-24 10:43 | P.PNANES_ITS ---
[facility] Disclaimer: The information contained in this section may have been updated after the patient was seen, as this information can be updated by other users. Medical History Neuropathy GERD (gastroesophageal reflux disease) Hypothyroid Asthma Hypertension Hyperlipemia Surgical History Total knee replacement status Tubal ligation status H/O abdominoplasty Tonsillectomy planned Family History Other No significant family history Social History Smoking Status: Never smoker alcohol intake: never substance use type: unknown current occupational status: retired Travel in the last 8 weeks?: None [facility] Anesthesia Checklist Patient Identification Patient Identification: Arm Band and Verbal (Name & ) Structural Data Admitted From: Home Planned Operative Procedure/s: colonscopy Consent for Planned Operative Procedure(s) Verified: Yes Verified Documents: Surgical Consent and History and Physical NPO Status Verified Time NPO: 00:00 Additional verifications Anesthesia Reactions: No Airway Assessment Mallampati Score:: Class II C-Spine Mobility Assessed: Yes TMJ Mobility Assessed: Yes Dentition: Good Dentition Neurological Assessment Level of Consciousness: Awake, Alert and Appropriate Hx Seizures: No Numbness or tingling in extremities: No Anesthesia Plan Anesthesia Risk discussed: Yes Anesthesia Plan: Verified ASA Class: II Anesthesia Type: MAC
[2025-04-24 11:38] VITALS: BP 97/48; PULSE 63; RESP 18; TEMP 36.3; O2SAT 92
[2025-04-24 11:48] VITALS: BP 137/84; PULSE 73; O2SAT 96
[2025-04-24 11:58] VITALS: BP 144/75; PULSE 66; O2SAT 97
[2025-04-24 12:08] VITALS: BP 138/71; PULSE 63; O2SAT 97
== END 2025-04-24 12:08 | disposition home or self-care (01) ==
PROVIDERS: PCP Nurse Practitioner Family; Visit Provider Internal Medicine Gastroenterology
PROC: 0DJD8ZZ Inspection of Lower Intestinal Tract, Via Natural or Artificial Opening Endoscopic (ICD-10-PCS; CPT 45378; principal; 2025-04-24 11:30)
DX: Z12.11 Encounter for screening for malignant neoplasm of colon (principal); K64.0 First degree hemorrhoids; Z83.79 Family history of other diseases of the digestive system
CPT/HCPCS: G0121; J2003; J2704; J7120